=== PATIENT | female | born 1925 | race Caucasian/White ===

== ENCOUNTER 2016-12-21 08:34 | Inpatient (IN) | payer OTHER ==
[2016-12-21] MEDS ORDERED: ACETAMINOPHEN 325 MG TABLET (FP) PO ONE ×2 (08:42→20:38)
--- NOTE | 2016-12-21 09:01 | PDOC ---
History of Present Illness - General Chief Complaint: SIRS, Suspected/Possible Stated Complaint: FEVER, SOB, CONGESTION Time Seen by Provider: 12/21/16 08:55 History Source: Patient Exam Limitations: No Limitations - History of Present Illness Initial Comments: 12/21/16 09:14 Patient is a 89 year old female with PMH of HTN, HLD & Gout who presents to ED with cough & fever since Monday night. She states the cough is mildly productive with white/clear sputum. It was accompanied by a sore throat, fever, mild chills & aches as well. She went to urgent care Monday and was diagnosed with sinus infection/URI and sent home with Cefdinir & Prednisone after testing (-) for strep. Since then the sore throat has mostly resolved, but her cough has not stopped. She also has had increased fevers yesterday and this morning. Daughter had bronchitis last week and is her only sick contact. Denies chest pain, SOB, abdominal pain, nausea, vomiting, diarrhea or constipation. Past History - Travel Traveled outside of the country in the last 30 days: No Close contact w/someone who was outside of country & ill: No - Past Medical History Allergies/Adverse Reactions: Allergies Allergy/AdvReac Type Severity Reaction Status Date / Time No Known Allergies Allergy Verified 12/21/16 08:39 Home Medications: Ambulatory Orders Aspirin 81 mg PO HS 02/27/14 Atorvastatin Ca [Lipitor -] 10 mg PO HS 02/27/14 Metoprolol Succinate [Toprol XL -] 25 mg PO HS 02/27/14 Allopurinol [Zyloprim -] 100 mg PO DAILY 12/21/16 Cardiac Disorders: Yes (tachycardia history) HTN: Yes Hypercholesterolemia: Yes Suicide Attempt (Hx): No Other medical history: Gout - Surgical History Cholecystectomy: Yes Other Surgical History: 12/21/16 09:19 Hysterectomy - Family Disease History Comment:: 12/21/16 09:19 none noted - Psycho/Social/Smoking Cessation Hx Anxiety: No Suicidal Ideation: No Smoking Status: No Smoking History: Never smoked Have you smoked in the past 12 months: No Hx Alcohol Use: No Drug/Substance Use Hx: No Substance Use Type: None Review of Systems - Review of Systems Able to Perform ROS?: Yes Is the patient limited Irish proficient: No Constitutional: Yes: Chills, Fever, Malaise HEENTM: Yes: Blurred Vision, Throat Pain. No: Recent change in vision, Ear Pain , Nose Congestion Respiratory: Yes: Productive cough. No: Hemoptysis Cardiac (ROS): No: Chest Pain, Irregular Heart Rate, Lightheadedness, Palpitations ABD/GI: No: Constipated, Diarrhea, Nausea, Vomiting, Abdominal cramping Neurological: No: Headache, Ataxia, Dizziness All Other Systems: Reviewed and Negative *Physical Exam - Vital Signs Last Vital Signs Temp Pulse Resp BP Pulse Ox 102.4 F H 117 H 20 143/74 93 L 12/21/16 08:36 12/21/16 08:36 12/21/16 08:36 12/21/16 08:36 12/21/16 08:36 - Physical Exam General Appearance: Yes: Nourished, Appropriately Dressed HEENT: positive: EOMI, BOOKER, Other (unable to visualize pharynx due to patient noncompliance) Neck: positive: Trachea midline, Normal Thyroid, Supple Respiratory/Chest: positive: Lungs Clear, Normal Breath Sounds Cardiovascular: positive: Regular Rhythm, S1, S2, Tachycardia Gastrointestinal/Abdominal: positive: Normal Bowel Sounds, Flat, Soft Extremity: positive: Normal Inspection Integumentary: positive: Normal Color, Dry, Warm Neurologic: positive: cook helper pastry II-XII NML intact, Fully Oriented, Alert, Normal Mood/ Affect, Motor Strength 5/5 Heart Score/ECG Review - ECG Impressions Comment:: 12/21/16 10:22 EKG: Sinus Rhythm with short CO (108ms), low voltage QRS, cannot r/o anterior infarct, age undetermined ED Treatment Course - LABORATORY CBC & Chemistry Diagram: 12/21/16 09:53 12/21/16 09:53 - Medications Given in the ED: ED Medications Discontinued Medications Generic Name Dose Route Start Last Admin Trade Name Freq PRN Reason Stop Dose Admin Acetaminophen 650 mg 12/21/16 08:42 12/21/16 08:42 Tylenol - PO 12/21/16 08:43 650 mg NOW ONE Administration Medical Decision Making - Medical Decision Making 12/21/16 09:32 Differential includes Viral URI, pneumonia, influenza, strep. Sepsis protocol initated as patient has >2 SIRS criteria. Ordered CBC, CMP, Lactic acid, CXR, Blood Cx, UA, Urine Cx, PT/INR/PTT & rapid influenza. Will give 1L IVF bolus. 12/21/16 11:11 CXR shows minimal atelectasis at left lung base. Creatinine mildly elevated at 1.5 (baseline is ~1.3). Influenza (-). Will start patient on Ceftriaxone & Azithromycin for presumed Community acquired pneumonia. Will require admission. 12/21/16 11:[address] Cruz who agrees to admit the patient for CAP. *DC/Admit/Observation/Transfer Diagnosis at time of Disposition: Acute onset sepsis, Community acquired pneumonia - Discharge Dispostion Admit: Yes - Referrals Referrals: Doug Nogueira MD [Primary Care Provider] -
[2016-12-21] MEDS ORDERED: SODIUM CHLORIDE 1,000 ML IV STA (09:41)
[2016-12-21 10:07] LABS: MCH 31.3 pg (25.7-33.7); MCHC 33.8 g/dl (32.0-36.0); MEAN CELL VOLUME 92.8 fl (80-96); PLATELET COUNT 133 K/MM3 (134-434); RDW 14.4 % (11.6-15.6); WHITE BLOOD COUNT 7.7 K/mm3 (4.0-10.0)
[2016-12-21 10:08] LABS: BASOPHIL 0.8 % (0-2.0); EOSINOPHIL 0.2 % (0-4.5); NEUTROPHILS 83.1 % (42.8-82.8)
[2016-12-21 10:09] LABS: VENOUS BLOOD GAS HCO3 18.1 meq/L (22-29)
--- NOTE | 2016-12-21 10:10 | PDOC ---
Attending Attestation - Resident Resident Name: LeslieMareka - ED Attending Attestation I have performed the following: I have examined & evaluated the patient, The case was reviewed & discussed with the resident, I agree w/resident's findings & plan, Exceptions are as noted - HPI HPI: 12/21/16 10:10 89-year-old female with history of hypertension and high cholesterol presents with URI and fevers progressing over the last 3 days, worsening cough but no chest pain or difficulty breathing, was seen at urgent care over the weekend and started on antibiotic for sinusitis. - Physicial Exam PE: 12/21/16 10:10 Febrile, tachycardic, O2 sat 92% Course cough Slightly coarse breath sounds in the right mid and right lower lung field, otherwise clear with good air entry and no wheezing or crackles Abdomen is benign - Critical Care Time Total Critical Care Time: 30 Critical Care Statement: The care of this patient involved high complexity decision making to prevent further life threatening deterioration of the patient 's condition and/or to evalute & treat vital organ system(s) failure or risk of failure. - Medical Decision Making 12/21/16 10:11 Patient seen and evaluated with the resident. I agree with the overall evaluation, assessment, and management with the following summary of visit: 89-year-old female presents with sepsis, possible pneumonia, rule out influenza. Sepsis protocol initiated Antipyretics, IV fluid resuscitation, supplemental oxygen Antibiotics as indicated Will require admission Heart Score/ECG Review #1 ECG reviewed & interpreted by me at: 10:16 General ECG Interpretation: Sinus Rhythm, Normal Rate (93), Normal Intervals, No acute ischemic changes (T wave flattening V5-6, no acute ST changes)
[2016-12-21 10:11] LABS: VENOUS PH 7.34 (7.31-7.41)
[2016-12-21 10:49] LABS: ALBUMIN 3.5 g/dl (3.4-5.0); BILIRUBIN,TOTAL 0.6 mg/dL (0.2-1.0); CALCIUM 9.3 mg/dL (8.5-10.1); CREATININE 1.5 mg/dL (0.55-1.02); TOT PROT 6.9 g/dl (6.4-8.2)
[2016-12-21 10:50] LABS: INR 1.12 (0.82-1.09); PROTHROMBIN TIME (PATIENT) 12.4 SEC (9.98-11.88)
[2016-12-21 10:53] LABS: ACTIVATED PTT 31.5 SECONDS (26.9-34.4)
[2016-12-21] MEDS ORDERED: AZITHROMYCIN IVPB 500 MG in DEXTROSE 5%-WATER - 250 ML IVPB ONE (11:00)
[2016-12-21] MEDS ORDERED: CEFTRIAXONE 1 GM in DEXTROSE 5%-WATER - 50 ML IVPB ONE (11:00)
[2016-12-21 11:06] LABS: TROPONIN I < 0.02 ng/ml (0.00-0.05)
[2016-12-21] MEDS ORDERED: AZITHROMYCIN IVPB 250 ML IVPB ONE (11:12)
[2016-12-21] MEDS ORDERED: CEFTRIAXONE 50 ML ONE (11:12)
[2016-12-21 11:34] LABS: URINE APPEARANCE CLEAR; URINE BILIRUBIN NEGATIVE (NEGATIVE); URINE COLOR YELLOW; URINE GLUCOSE (UA) NEGATIVE (NEGATIVE); URINE KETONE NEGATIVE (NEGATIVE); URINE LEUK ESTERASE NEGATIVE (NEGATIVE); URINE NITRITE NEGATIVE (NEGATIVE); URINE UROBILINOGEN NEGATIVE E.U./dl (0.2-1.0)
[2016-12-21 11:35] LABS: URINE BLOOD 1+ (NEGATIVE); URINE PROTEIN 1+ (NEGATIVE)
[2016-12-21 11:36] LABS: URINE MUCUS RARE; URINE RBC 6 /hpf (0-3); URINE WBC 1 /hpf (3-5)
[2016-12-21] MEDS ORDERED: ACETAMINOPHEN 325 MG TABLET (FP) PO PRN (12:16)
[2016-12-21] MEDS ORDERED: DOCUSATE SODIUM 100 MG CAPSULE (FP) PO PRN (12:16)
[2016-12-21] MEDS ORDERED: ONDANSETRON 4 MG/2 ML VIAL IVPB PRN (12:16)
[2016-12-21] MEDS ORDERED: IPRATROPIUM BR 0.02% 0.5 MG/2.5 ML VIAL.NEB. NEB PRN (12:16)
[2016-12-21] MEDS ORDERED: ALBUTEROL SO4 0.083% IH SOL 2.5 MG/3 ML VIAL.NEB. NEB PRN (12:16)
--- NOTE | 2016-12-21 12:23 | HP ---
Admitting History and Physical - Primary Care Physician PCP: Doug Nogueira - Admission Chief Complaint: I have a terrible cough History of Present Illness: Ms Ho is a very pleasant 89 year old female who comes in complaining of cough. She says her daughter recently has been sick with bronchitis. On Monday she noted she began to have a cough. It was slight at first, however it began to worsen. The cough was non-productive. She was short of breath secondary to the cough. She had fevers and chills with it. She presented to an urgent care and was started on an oral antibiotic. She continued to have fevers and worsening cough and came here for further evaluation. She denies lightheadedness , dizziness, passing out, chest pain, nausea, vomiting, abdominal pain, diarrhea , constipation, difficulty or pain on urination, or swelling. She says she has not slept well secondary to coughing. History Source: Patient Limitations to Obtaining History: No Limitations - Past Medical History Cardiovascular: Yes: HTN, Hyperlipdemia Rheumatology: Yes: Gout - Past Surgical History Past Surgical History: Yes: Cholecystectomy, Tonsillectomy - Smoking History Smoking history: Never smoked Have you smoked in the past 12 months: No - Alcohol/Substance Use Hx Alcohol Use: No History of Substance Use: reports: None - Social History ADL: Independent History of Recent Travel: No Home Medications - Allergies Allergies/Adverse Reactions: Allergies Allergy/AdvReac Type Severity Reaction Status Date / Time No Known Allergies Allergy Verified 12/21/16 08:39 - Home Medications Home Medications: Ambulatory Orders Aspirin 81 mg PO HS 02/27/14 Atorvastatin Ca [Lipitor -] 10 mg PO HS 02/27/14 Metoprolol Succinate [Toprol XL -] 25 mg PO HS 02/27/14 Allopurinol [Zyloprim -] 100 mg PO DAILY 12/21/16 Family Disease History - Family Disease History Family Disease History: Other: Father ( of pneumonia) Review of Systems Findings/Remarks: full review of systems obtained, as per HPI and otherwise negative Physical Examination Vital Signs: Vital Signs Temperature 98.2 F 12/21/16 11:06 Pulse Rate 103 H 12/21/16 11:06 Respiratory Rate 18 12/21/16 11:06 Blood Pressure 132/75 12/21/16 11:06 O2 Sat by Pulse Oximetry (%) 97 12/21/16 11:06 Constitutional: Yes: Well Nourished, No Distress, Calm Eyes: Yes: Conjunctiva Clear, EOM Intact HENT: Yes: Atraumatic, Normocephalic Cardiovascular: Yes: Regular Rate and Rhythm. No: Gallop, Murmur, Rub Respiratory: Yes: Cough, On Nasal O2, Rhonchi. No: Rales, Wheezes Gastrointestinal: Yes: Normal Bowel Sounds, Soft. No: Distention, Tenderness Extremities: Yes: WNL Edema: No Labs: CBC, BMP 12/21/16 09:53 12/21/16 09:53 Imaging - Results Chest X-ray: Report Reviewed, Image Reviewed Problem List - Problems (1) Community acquired pneumonia Assessment/Plan: -patient presents with CAP -admit to hospital -reilly and dany, day 1 -culturelle -prn robitussin ac hs Code(s): J18.9 - PNEUMONIA, UNSPECIFIED ORGANISM (2) Gout Assessment/Plan: -continue allopurinol Code(s): M10.9 - GOUT, UNSPECIFIED (3) HTN (hypertension) Assessment/Plan: -continue toprol xl Code(s): I10 - ESSENTIAL (PRIMARY) HYPERTENSION (4) HLD (hyperlipidemia) Assessment/Plan: -continue lipitor Code(s): E78.5 - HYPERLIPIDEMIA, UNSPECIFIED (5) CKD (chronic kidney disease) Assessment/Plan: -at baseline Code(s): N18.9 - CHRONIC KIDNEY DISEASE, UNSPECIFIED
[2016-12-21] MEDS ORDERED: SODIUM CHLORIDE 1,000 ML IV SCH (12:30)
[2016-12-21] MEDS ORDERED: LACTOBACILLUS ACIDOPHILUS 1 EACH TAB (FP) PO SCH (13:30)
--- NOTE | 2016-12-21 15:31 | EKG ---
Test Reason : Blood Pressure : / mmHG Vent. Rate : 093 BPM Atrial Rate : 093 BPM P-R Int : 108 ms QRS Dur : 074 ms QT Int : 328 ms P-R-T Axes : 056 -16 -06 degrees QTc Int : 407 ms SINUS RHYTHM WITH SHORT OH LOW VOLTAGE QRS CANNOT RULE OUT ANTERIOR INFARCT , AGE UNDETERMINED ABNORMAL ECG WHEN COMPARED WITH ECG OF 19-AUG-2010 14:45, [place] INTERVAL HAS DECREASED Confirmed by GRICELDA COLLAZO, JOEY ([id number]) on 12/21/2016 3:30:48 PM Referred By: Confirmed By:JOEY MADISON MD
[2016-12-21] MEDS: LACTOBACILLUS ACIDOPHILUS 1 EACH TAB (FP) PO SCH (18:00)
[2016-12-21] MEDS ORDERED: ACETAMINOPHEN 325 MG TABLET (FP) ONE (20:53)
[2016-12-21] MEDS ORDERED: guaiFENesin 600 MG TABLET.ER (FP) PO SCH (22:00)
[2016-12-21] MEDS: ASPIRIN 81 MG CHEWABLE TABLETS PO SCH (22:10)
[2016-12-21] MEDS: ATORVASTATIN CA 10 MG TABLET (FP) PO SCH (22:10)
[2016-12-21] MEDS: guaiFENesin 600 MG TABLET.ER (FP) PO SCH (22:10)
[2016-12-21] MEDS: METOPROLOL SUCCINATE 25 MG TAB.SR.24H (FP) PO SCH (22:11)
[2016-12-21] MEDS: HEPARIN NA (PORCINE) 5,000 UNITS/ML 1ML VIAL SQ SCH (22:19)
[2016-12-22 00:10] VITALS: BMI 27.1
[2016-12-22 07:16] LABS: BASOPHIL 0.9 % (0-2.0); EOSINOPHIL 5.1 % (0-4.5); MCH 31.6 pg (25.7-33.7); MCHC 33.7 g/dl (32.0-36.0); MEAN CELL VOLUME 93.8 fl (80-96); MEAN PLT VOLUME 8.6 fl (7.5-11.1); NEUTROPHILS 57.1 % (42.8-82.8); PLATELET COUNT 108 K/MM3 (134-434); RDW 14.3 % (11.6-15.6); WHITE BLOOD COUNT 4.9 K/mm3 (4.0-10.0)
[2016-12-22 08:01] LABS: CALCIUM 9.1 mg/dL (8.5-10.1); CREATININE 1.4 mg/dL (0.55-1.02); MAGNESIUM 2.3 mg/dL (1.8-2.4); PHOSPHOROUS 2.8 mg/dL (2.5-4.9)
[2016-12-22] MEDS ORDERED: SODIUM CHLORIDE 1,000 ML IV SCH (08:30)
--- NOTE | 2016-12-22 08:36 | PN ---
Progress Note (short form) - Note Progress Note: 89 year old patient with history of Hypertension, Gout and Hyperlipidemia comes to ER with hx of 4 days of constant cough and some SOB. CXR revealed atelectasis ? early infiltrate and she has had a temp of 101.3 here. Was given PO antibiotics by urgent care but not better. Still coughing Sputum clear no diarrhea some SOB On exam: Vital Signs Period Temp Pulse Resp BP Sys/Navarro Pulse Ox Last 24 Hr 98.2 F-102.4 F 83-117 18-22 106-146/68-78 93-98 Alert slightly hoarse Chest bilateral rhonchi and a few wheezes and rales at both bases Ext: No edema Cor: reg Abnormal Lab Results 12/21/16 12/21/16 12/21/16 09:53 09:53 10:05 Plt Count 133 L D Neutrophils % 83.1 H D Monocytes % Eosinophils % POC VBG pCO2 34.6 L POC VBG pO2 73.3 H Chloride 108 H Carbon Dioxide 20 L BUN 25 H Creatinine 1.5 H Random Glucose 113 H AST 39 H D Creatine Kinase Urine Protein Urine Blood 12/21/16 12/21/16 12/22/16 10:14 10:56 06:00 Plt Count 108 L Neutrophils % Monocytes % 11.3 H Eosinophils % 5.1 H D POC VBG pCO2 POC VBG pO2 Chloride Carbon Dioxide BUN Creatinine Random Glucose AST Creatine Kinase 426 H D Urine Protein 1+ H Urine Blood 1+ H 12/22/16 06:00 Plt Count Neutrophils % Monocytes % Eosinophils % POC VBG pCO2 POC VBG pO2 Chloride 110 H Carbon Dioxide BUN 22 H Creatinine 1.4 H Random Glucose AST Creatine Kinase Urine Protein Urine Blood Imp: Acute bronchitis and probable pneumonia Hypertension Hyperlipidemia Hx. Gout Chronic renal failure Plan: Continue Current Rx Pulmonary MD Followup Lab
[2016-12-22] MEDS: cefTRIAXone 1 GM/50 ML BAG (PRE-DOCKED) IVPB SCH (09:55)
[2016-12-22] MEDS: HEPARIN NA (PORCINE) 5,000 UNITS/ML 1ML VIAL SQ SCH ×2 (09:59→22:39)
[2016-12-22] MEDS: ALLOPURINOL 100 MG TABLET (FP) PO SCH (09:59)
[2016-12-22] MEDS: LACTOBACILLUS ACIDOPHILUS 1 EACH TAB (FP) PO SCH (09:59)
[2016-12-22] MEDS: guaiFENesin 600 MG TABLET.ER (FP) PO SCH ×2 (09:59→22:20)
[2016-12-22] MEDS ORDERED: CEFTRIAXONE 1 GM in DEXTROSE 5%-WATER - 50 ML IVPB SCH (10:00)
[2016-12-22] MEDS: AZITHROMYCIN IVPB 250 MG in DEXTROSE 5%-WATER - 250 ML IVPB SCH (11:50)
--- NOTE | 2016-12-22 12:00 | CONSULT ---
Consult Consult Specialty:: PULMONARY Referred by:: Dr. Nogueira Reason for Consultation:: cough - History of Present Illness Chief Complaint: cough History of Present Illness: 89yo female with h/o HTN, hyperlipidemia, gout who presents with a worsening cough x 5 days. She reports that her cough is mostly nonproductive but clear when she is able to produce sputum. Reports subjective fevers and chills. Her daughter is sick with bronchitis. She went to an urgent care center where she was prescribed ceftin without significant relief. She denies shortness fo breath unless she is coughing. No chest pain or palpitations. She did receive her flu shot this year, has not been on antibiotics or hospitalized within the past 3 months. No nausea, vomiting, abdominal pain or diarrhea. She is a never smoker, used to work for [employer]. - History Source History Provided By: Patient, Medical Record Limitations to Obtaining History: No Limitations - Past Medical History Cardio/Vascular: Yes: HTN, Hyperlipdemia Rheumatology: Yes: Gout - Past Surgical History Past Surgical History: Yes: Cholecystectomy, Tonsillectomy - Alcohol/Substance Use Hx Alcohol Use: No History of Substance Use: reports: None - Smoking History Smoking history: Never smoked Have you smoked in the past 12 months: No - Social History ADL: Independent History of Recent Travel: No Home Medications - Allergies Allergies/Adverse Reactions: Allergies Allergy/AdvReac Type Severity Reaction Status Date / Time No Known Allergies Allergy Verified 12/21/16 08:39 - Home Medications Home Medications: Ambulatory Orders Aspirin 81 mg PO HS 02/27/14 Atorvastatin Ca [Lipitor -] 10 mg PO HS 02/27/14 Metoprolol Succinate [Toprol XL -] 25 mg PO HS 02/27/14 Allopurinol [Zyloprim -] 100 mg PO DAILY 12/21/16 Family Disease History - Family Disease History Family Disease History: Other: Father ( of pneumonia) Review of Systems - Review of Systems Constitutional: reports: Chills, Fever, Malaise Eyes: denies: Recent Change in Vision HENT: denies: Nasal Congestion, Throat Pain Neck: denies: Stiffness, Tenderness Cardiovascular: reports: Shortness of Breath. denies: Chest Pain, Edema, Palpitations Respiratory: reports: Cough. denies: Hemoptysis, SOB on Exertion, Wheezing Gastrointestinal: denies: Abdominal Pain, Nausea, Vomiting Genitourinary: denies: Dysuria, Hematuria Neurological: denies: Dizziness, Headache Endocrine: denies: Unexplained Weight Gain, Unexplained Weight Loss Physical Exam Vital Signs: Vital Signs Temperature 98.6 F 12/22/16 06:25 Pulse Rate 88 12/22/16 06:25 Respiratory Rate 18 12/22/16 06:25 Blood Pressure 146/76 12/22/16 06:25 O2 Sat by Pulse Oximetry (%) 95 12/21/16 22:00 Constitutional: Yes: Calm Eyes: Yes: Conjunctiva Clear, EOM Intact HENT: Yes: Atraumatic, Normocephalic Neck: Yes: Supple, Trachea Midline Cardiovascular: Yes: Regular Rate and Rhythm Respiratory: Yes: Diminished (decreased breath sounds at the bases) Gastrointestinal: Yes: Normal Bowel Sounds, Soft. No: Tenderness Edema: No Neurological: Yes: Alert, Oriented Labs: CBC, BMP 12/22/16 06:00 12/22/16 06:00 Imaging - Results Chest X-ray: Report Reviewed, Image Reviewed (left base atelectasis) Problem List - Problems (1) Community acquired pneumonia Code(s): J18.9 - PNEUMONIA, UNSPECIFIED ORGANISM (2) CKD (chronic kidney disease) Code(s): N18.9 - CHRONIC KIDNEY DISEASE, UNSPECIFIED (3) HLD (hyperlipidemia) Code(s): E78.5 - HYPERLIPIDEMIA, UNSPECIFIED (4) HTN (hypertension) Code(s): I10 - ESSENTIAL (PRIMARY) HYPERTENSION (5) Gout Code(s): M10.9 - GOUT, UNSPECIFIED Assessment/Plan Pneumonia vs Viral Syndrome HTN Hyperlipidemia Gout - agree with current antibiotic coverage with ceftriaxone and azithromycin - f/u cultures - inhaled bronchodilators as needed - O2 as needed - cough suppressants if not producing sputum - DVT prophylaxis Thank you for this consult Nolan Palmer MD
[2016-12-22] MEDS: ATORVASTATIN CA 10 MG TABLET (FP) PO SCH (22:20)
[2016-12-22] MEDS: METOPROLOL SUCCINATE 25 MG TAB.SR.24H (FP) PO SCH (22:20)
[2016-12-22] MEDS: ASPIRIN 81 MG CHEWABLE TABLETS PO SCH (22:20)
[2016-12-23 08:02] LABS: BASOPHIL 1.7 % (0-2.0); EOSINOPHIL 5.3 % (0-4.5); MCH 31.4 pg (25.7-33.7); MCHC 33.5 g/dl (32.0-36.0); MEAN CELL VOLUME 93.7 fl (80-96); MEAN PLT VOLUME 8.9 fl (7.5-11.1); NEUTROPHILS 48.5 % (42.8-82.8); PLATELET COUNT 112 K/MM3 (134-434); RDW 14.2 % (11.6-15.6); WHITE BLOOD COUNT 4.8 K/mm3 (4.0-10.0)
[2016-12-23 09:27] LABS: CALCIUM 8.7 mg/dL (8.5-10.1); CREATININE 1.3 mg/dL (0.55-1.02); URIC ACID 5.9 mg/dL (2.6-7.2)
--- NOTE | 2016-12-23 09:53 | PN ---
Progress Note, Physician Chief Complaint: Still coughing but not as weak. History of Present Illness: Patient admitted with pneumonia from home now on Iv antibiotics and followed by Pulmonary MD. WBC normal but some decrease in platelets ? meds; to follow Renal lab improved on IV fluids. - Current Medication List Current Medications: Active Medications Acetaminophen (Tylenol -) 650 mg PO Q4H PRN PRN Reason: FEVER OR PAIN Albuterol Sulfate (Ventolin 0.083% Nebulizer Soln -) 1 amp NEB Q6H PRN PRN Reason: SHORT OF BREATH/WHEEZING Allopurinol (Zyloprim -) 100 mg PO DAILY [facility] Last Admin: 12/22/16 09:59 Dose: 100 mg Aspirin (Asa -) 81 mg PO HS [facility] Last Admin: 12/22/16 22:20 Dose: 81 mg Atorvastatin Calcium (Lipitor -) 10 mg PO HS [facility] Last Admin: 12/22/16 22:20 Dose: 10 mg Ceftriaxone Sodium (Rocephin 1gm Ivpb (Pre-Docked)) 1 gm IVPB DAILY [facility] Last Admin: 12/22/16 09:55 Dose: 1 gm Docusate Sodium (Colace -) 100 mg PO Q8H PRN PRN Reason: CONSTIPATION Last Admin: 12/22/16 16:22 Dose: 100 mg Guaifenesin (Mucinex -) 600 mg PO BID [facility] Last Admin: 12/22/16 22:20 Dose: 600 mg Guaifenesin/Codeine Phosphate (Robitussin Ac -) 10 ml PO HS PRN PRN Reason: COUGH Heparin Sodium (Porcine) (Heparin -) 5,000 unit SQ BID [facility] Last Admin: 12/22/16 22:39 Dose: Not Given Azithromycin 250 mg/ Dextrose 250 mls @ 250 mls/hr IVPB DAILY [facility] Last Admin: 12/22/16 11:50 Dose: 250 mls/hr Ipratropium Francitas (Atrovent 0.02% Nebulizer -) 1 amp NEB Q6H PRN PRN Reason: WHEEZING Lactobacillus Acidophilus (Bacid -) 1 tab PO DAILY [facility] Last Admin: 12/22/16 09:59 Dose: 1 tab Metoprolol Succinate (Toprol Xl -) 25 mg PO HS [facility] Last Admin: 12/22/16 22:20 Dose: 25 mg Ondansetron HCl (Zofran Injection) 4 mg IVPB Q6H PRN PRN Reason: NAUSEA - Objective Vital Signs: Vital Signs Temperature 97.8 F 12/23/16 06:00 Pulse Rate 78 12/23/16 06:00 Respiratory Rate 16 12/23/16 06:00 Blood Pressure 113/65 12/23/16 06:00 O2 Sat by Pulse Oximetry (%) 97 12/22/16 21:00 Constitutional: Yes: Calm Eyes: Yes: Conjunctiva Clear Cardiovascular: Yes: Regular Rate and Rhythm Respiratory: Yes: Rales, Rhonchi. No: Wheezes (at bases;) Gastrointestinal: Yes: Abdomen, Obese. No: Tenderness Genitourinary: No: Bhat Present Edema: No Neurological: Yes: Alert, Oriented Labs: CBC, BMP 12/23/16 06:00 12/23/16 06:00 INR, PTT INR 1.12 (0.82-1.09) 12/21/16 10:14 Problem List - Problems (1) Community acquired pneumonia Assessment/Plan: Still coughing. On Iv antibiotics. Code(s): J18.9 - PNEUMONIA, UNSPECIFIED ORGANISM (2) CKD (chronic kidney disease) Assessment/Plan: Improved on IV fluids; will switch to 1/2NS as slightly increased Na Code(s): N18.9 - CHRONIC KIDNEY DISEASE, UNSPECIFIED (3) Cough Assessment/Plan: Has Rx renewed Code(s): R05 - COUGH (4) HTN (hypertension) Assessment/Plan: Stable Code(s): I10 - ESSENTIAL (PRIMARY) HYPERTENSION (5) Gout Assessment/Plan: On rx Code(s): M10.9 - GOUT, UNSPECIFIED
[2016-12-23] MEDS ORDERED: POLYETHYLENE GLYCOL 3350 119 GM BTL PO ONE (09:54)
[2016-12-23] MEDS: guaiFENesin 600 MG TABLET.ER (FP) PO SCH ×2 (11:12→23:30)
[2016-12-23] MEDS: ALLOPURINOL 100 MG TABLET (FP) PO SCH (11:12)
[2016-12-23] MEDS: LACTOBACILLUS ACIDOPHILUS 1 EACH TAB (FP) PO SCH (11:12)
[2016-12-23] MEDS: cefTRIAXone 1 GM/50 ML BAG (PRE-DOCKED) IVPB SCH (11:15)
[2016-12-23] MEDS: HEPARIN NA (PORCINE) 5,000 UNITS/ML 1ML VIAL SQ SCH ×2 (11:19→21:40)
[2016-12-23] MEDS: AZITHROMYCIN IVPB 250 MG in DEXTROSE 5%-WATER - 250 ML IVPB SCH (11:23)
--- NOTE | 2016-12-23 16:52 | PN ---
Progress Note (short form) - Note Progress Note: PULMONARY AMBULATING IN HALLWAY WITH FAMILY MEMBER CHART REVIEWED AFEBRILE/VSS ANICTERIC DIMINISHED B/L BREATH SOUNDS S1S2 BS+ NO EDEMA LABS/MEDS/NOTES/IMAGING/MICRO REVIEWED Pneumonia HTN Hyperlipidemia Gout - agree with current antibiotic coverage with ceftriaxone and azithromycin - inhaled bronchodilators as needed - O2 as needed - cough suppressants if not producing sputum - DVT prophylaxis Austin VOSS MD
[2016-12-23] MEDS: ASPIRIN 81 MG CHEWABLE TABLETS PO SCH (21:40)
[2016-12-23] MEDS: ATORVASTATIN CA 10 MG TABLET (FP) PO SCH (21:40)
[2016-12-23] MEDS: METOPROLOL SUCCINATE 25 MG TAB.SR.24H (FP) PO SCH (21:41)
[2016-12-23] MEDS: guaiFENesin/CODEINE 10 ML UNIT-DOSE CUPS PO PRN (21:41)
[2016-12-24 07:39] LABS: BASOPHIL 0.9 % (0-2.0); EOSINOPHIL 4.9 % (0-4.5); MCH 31.3 pg (25.7-33.7); MCHC 33.7 g/dl (32.0-36.0); MEAN CELL VOLUME 93.1 fl (80-96); MEAN PLT VOLUME 8.6 fl (7.5-11.1); NEUTROPHILS 53.6 % (42.8-82.8); PLATELET COUNT 126 K/MM3 (134-434); RDW 14.1 % (11.6-15.6); WHITE BLOOD COUNT 5.1 K/mm3 (4.0-10.0)
[2016-12-24 07:57] LABS: CALCIUM 8.9 mg/dL (8.5-10.1)
[2016-12-24 07:59] LABS: CREATININE 1.3 mg/dL (0.55-1.02)
[2016-12-24] MEDS ORDERED: PT OWN MED DRAWER 7, Y5N ONE (10:01)
--- NOTE | 2016-12-24 10:16 | PN ---
Progress Note (short form) - Note Progress Note: Patient seen an examined Chart reviewed. Cough and congestion persist. Denies new chest discomfort. No fever or rigors. Labs and audit consultant notes reviewed and appreciated. Selected Entries 12/23/16 12/24/16 21:00 05:31 Temperature 98 F Respiratory 20 Rate Blood Pressure 132/74 O2 Sat by Pulse 96 Oximetry (%) Oxygen Delivery Nasal Cannula Method Oxygen Flow 2 Rate Laboratory Tests 12/21/16 12/24/16 12/24/16 10:14 06:00 06:00 WBC 5.1 Hgb 13.3 Hct 39.5 Plt Count 126 L Sodium 144 Potassium 3.9 Chloride 111 H Carbon Dioxide 23 BUN 23 H Creatinine 1.3 H Random Glucose 81 Calcium 8.9 Creatine Kinase 426 H D CK-MB (CK-2) 1.87 Troponin I < 0.02 Chest Diffuse scattered mild rhonchi and fine end-expiratory wheezing Cor RRR Abd Distended soft BS positive No mass or tenderness Ext No edema No phlebitis Neuro No new focal deficit Assessment and Plan Pneumonitis On antibiotic Rx May benefit from the addition of a short course of corticosteroid Mild thrombocytopenia 133K>>108K>>112K>>126K Follow for now CRI Monitor 22/1.4>>23/1.3 HTN Stable HPL Stable Gout H/O
--- NOTE | 2016-12-24 10:56 | PN ---
Progress Note (short form) - Note Progress Note: PULMONARY OOB TO CHAIR PMD NOTES REVIEWED AFEBRILE/VSS ANICTERIC DIMINISHED B/L BREATH SOUNDS S1S2 BS+ NO EDEMA LABS/MEDS/NOTES/IMAGING/MICRO REVIEWED Pneumonia HTN Hyperlipidemia Gout - ceftriaxone and azithromycin - bronchodilators/agree with short course steroids - O2 as needed - cough suppressants if not producing sputum - DVT prophylaxis Austin VOSS MD
[2016-12-24] MEDS: AZITHROMYCIN IVPB 250 MG in DEXTROSE 5%-WATER - 250 ML IVPB SCH (10:58)
[2016-12-24] MEDS: cefTRIAXone 1 GM/50 ML BAG (PRE-DOCKED) IVPB SCH (10:58)
[2016-12-24] MEDS: guaiFENesin 600 MG TABLET.ER (FP) PO SCH ×2 (10:59→21:03)
[2016-12-24] MEDS: HEPARIN NA (PORCINE) 5,000 UNITS/ML 1ML VIAL SQ SCH ×2 (11:02→21:03)
[2016-12-24] MEDS: LACTOBACILLUS ACIDOPHILUS 1 EACH TAB (FP) PO SCH (11:03)
[2016-12-24] MEDS: ALLOPURINOL 100 MG TABLET (FP) PO SCH (11:03)
[2016-12-24] MEDS: guaiFENesin/CODEINE 10 ML UNIT-DOSE CUPS PO PRN (13:30)
[2016-12-24] MEDS: methylPREDNISolone NA SUCC 40 MG/1 ML VIAL IVPB SCH (17:30)
[2016-12-24] MEDS: METOPROLOL SUCCINATE 25 MG TAB.SR.24H (FP) PO SCH (21:03)
[2016-12-24] MEDS: ASPIRIN 81 MG CHEWABLE TABLETS PO SCH (21:03)
[2016-12-24] MEDS: ATORVASTATIN CA 10 MG TABLET (FP) PO SCH (21:04)
[2016-12-25] MEDS: methylPREDNISolone NA SUCC 40 MG/1 ML VIAL IVPB SCH ×3 (02:09→21:44)
[2016-12-25 07:17] LABS: BASOPHIL 0.1 % (0-2.0); MCH 31.3 pg (25.7-33.7); MCHC 33.5 g/dl (32.0-36.0); MEAN CELL VOLUME 93.2 fl (80-96); MEAN PLT VOLUME 9.5 fl (7.5-11.1); NEUTROPHILS 88.2 % (42.8-82.8); PLATELET COUNT 136 K/MM3 (134-434); RDW 13.9 % (11.6-15.6); WHITE BLOOD COUNT 6.9 K/mm3 (4.0-10.0)
[2016-12-25 08:02] LABS: ALBUMIN 2.9 g/dl (3.4-5.0); BILIRUBIN,TOTAL 0.4 mg/dL (0.2-1.0); CALCIUM 9.6 mg/dL (8.5-10.1); CREATININE 1.3 mg/dL (0.55-1.02); TOT PROT 6.7 g/dl (6.4-8.2)
[2016-12-25] MEDS: ALLOPURINOL 100 MG TABLET (FP) PO SCH (09:52)
[2016-12-25] MEDS: HEPARIN NA (PORCINE) 5,000 UNITS/ML 1ML VIAL SQ SCH ×2 (09:52→21:45)
[2016-12-25] MEDS: LACTOBACILLUS ACIDOPHILUS 1 EACH TAB (FP) PO SCH (09:52)
[2016-12-25] MEDS: guaiFENesin 600 MG TABLET.ER (FP) PO SCH ×2 (09:52→21:45)
[2016-12-25] MEDS: AZITHROMYCIN IVPB 250 MG in DEXTROSE 5%-WATER - 250 ML IVPB SCH (11:00)
[2016-12-25] MEDS: cefTRIAXone 1 GM/50 ML BAG (PRE-DOCKED) IVPB SCH (11:05)
--- NOTE | 2016-12-25 11:21 | PN ---
Progress Note (short form) - Note Progress Note: Patient seen an examined Chart reviewed. Cough and congestion improved Denies new chest discomfort. No fever or rigors. Labs and bridal stylist sales consultant notes reviewed and appreciated. Appetite good. Selected Entries 12/24/16 12/25/16 21:00 06:00 Temperature 97.2 F L Pulse Rate 70 Respiratory 20 Rate Blood Pressure 130/77 O2 Sat by Pulse 95 Oximetry (%) Oxygen Delivery Nasal Cannula Method Oxygen Flow 2 Rate Laboratory Tests 12/25/16 12/25/16 06:00 06:00 WBC 6.9 D Hgb 14.2 Hct 42.3 Plt Count 136 Sodium 143 Potassium 4.5 Chloride 110 H Carbon Dioxide 23 BUN 27 H Creatinine 1.3 H Random Glucose 158 H D Calcium 9.6 Total Bilirubin 0.4 D AST 49 H D ALT 47 D Alkaline Phosphatase 90 Total Protein 6.7 Albumin 2.9 L Chest Clear this AM. No residual of diffuse scattered rhonchi and fine end- expiratory wheezing Cor RRR Abd Distended soft BS positive No mass or tenderness Ext No edema No phlebitis Neuro No new focal deficit Assessment and Plan Pneumonitis On antibiotic Rx Appears to have benefitted from the addition of corticosteroid Will taper rapidly Mild thrombocytopenia Improving 133K>>108K>>112K>>126K>>136K Follow for now. Possible effect of infection and/or steroid use CRI Monitor 22/1.4>>23/1.3 HTN Stable HPL Stable Gout H/O Continue current Rx Taper solu-medrol
--- NOTE | 2016-12-25 13:55 | PN ---
Progress Note (short form) - Note Progress Note: PULMONARY AMBULATING IN ROOM OFFERS NO COMPLAINTS AFEBRILE/VSS ANICTERIC CLEAR B/L BREATH SOUNDS S1S2 BS+ NO EDEMA LABS/MEDS/NOTES/IMAGING/MICRO REVIEWED Pneumonia HTN Hyperlipidemia Gout - ceftriaxone and azithromycin - bronchodilators/solumedrol reduced - O2 as needed - DVT prophylaxis Austin VOSS MD
[2016-12-25] MEDS: ASPIRIN 81 MG CHEWABLE TABLETS PO SCH (21:45)
[2016-12-25] MEDS: ATORVASTATIN CA 10 MG TABLET (FP) PO SCH (21:45)
[2016-12-25] MEDS: METOPROLOL SUCCINATE 25 MG TAB.SR.24H (FP) PO SCH (21:45)
[2016-12-26 07:14] LABS: BASOPHIL 0.1 % (0-2.0); MCHC 33.3 g/dl (32.0-36.0); MEAN PLT VOLUME 9.2 fl (7.5-11.1); NEUTROPHILS 87.1 % (42.8-82.8); PLATELET COUNT 157 K/MM3 (134-434)
[2016-12-26 07:51] LABS: ALBUMIN 2.9 g/dl (3.4-5.0); BILIRUBIN,TOTAL 0.4 mg/dL (0.2-1.0); CALCIUM 9.5 mg/dL (8.5-10.1); CREATININE 1.2 mg/dL (0.55-1.02); TOT PROT 6.2 g/dl (6.4-8.2)
[2016-12-26] MEDS ORDERED: guaiFENesin/CODEINE 5 ML UNIT-DOSE CUPS PO PRN (09:21)
--- NOTE | 2016-12-26 09:30 | PN ---
Progress Note, Physician Chief Complaint: coughing and insomnia from last madie. History of Present Illness: Patient felt better yesterday but had come mild increase in wheezing yesterday and coughing still a problem. Not able to sleep due to steroids and roommate having problems. On IV antibiotics and steroids. PT ambulating. - Current Medication List Current Medications: Active Medications Acetaminophen (Tylenol -) 650 mg PO Q4H PRN PRN Reason: FEVER OR PAIN Albuterol Sulfate (Ventolin 0.083% Nebulizer Soln -) 1 amp NEB Q6H PRN PRN Reason: SHORT OF BREATH/WHEEZING Allopurinol (Zyloprim -) 100 mg PO DAILY [facility] Last Admin: 12/25/16 09:52 Dose: 100 mg Aspirin (Asa -) 81 mg PO HS [facility] Last Admin: 12/25/16 21:45 Dose: 81 mg Atorvastatin Calcium (Lipitor -) 10 mg PO HS [facility] Last Admin: 12/25/16 21:45 Dose: 10 mg Ceftriaxone Sodium (Rocephin 1gm Ivpb (Pre-Docked)) 1 gm IVPB DAILY [facility] Last Admin: 12/25/16 11:05 Dose: 1 gm Docusate Sodium (Colace -) 100 mg PO Q8H PRN PRN Reason: CONSTIPATION Last Admin: 12/22/16 16:22 Dose: 100 mg Guaifenesin (Mucinex -) 600 mg PO BID [facility] Last Admin: 12/25/16 21:45 Dose: 600 mg Guaifenesin/Codeine Phosphate (Robitussin Ac -) 5 ml PO TID PRN PRN Reason: COUGH Heparin Sodium (Porcine) (Heparin -) 5,000 unit SQ BID [facility] Last Admin: 12/25/16 21:45 Dose: Not Given Azithromycin 250 mg/ Dextrose 250 mls @ 250 mls/hr IVPB DAILY [facility] Last Admin: 12/25/16 11:00 Dose: 250 mls/hr Ipratropium [place] (Atrovent 0.02% Nebulizer -) 1 amp NEB Q6H PRN PRN Reason: WHEEZING Lactobacillus Acidophilus (Bacid -) 1 tab PO DAILY [facility] Last Admin: 12/25/16 09:52 Dose: 1 tab Lorazepam (Ativan -) 0.5 mg PO HS PRN PRN Reason: ANXIETY Methylprednisolone Sodium Succinate (Solu-Medrol -) 20 mg IVPB Q12H [facility] Last Admin: 12/25/16 21:44 Dose: 20 mg Metoprolol Succinate (Toprol Xl -) 25 mg PO HS [facility] Last Admin: 12/25/16 21:45 Dose: 25 mg Ondansetron HCl (Zofran Injection) 4 mg IVPB Q6H PRN PRN Reason: NAUSEA - Objective Vital Signs: Vital Signs Temperature 97.9 F 12/26/16 05:38 Pulse Rate 77 12/26/16 05:38 Respiratory Rate 20 12/26/16 05:38 Blood Pressure 134/88 12/26/16 05:38 O2 Sat by Pulse Oximetry (%) 96 12/25/16 21:00 Constitutional: Yes: Anxious, Other (flushed due to steroids.) Cardiovascular: Yes: Regular Rate and Rhythm Respiratory: Yes: Diminished, Rhonchi, Wheezes (few wheezes at left base.) Gastrointestinal: Yes: Soft, Hypoactive Bowel Sounds Edema: No Neurological: Yes: Alert, Oriented Labs: CBC, BMP 12/26/16 05:52 12/26/16 05:52 INR, PTT INR 1.12 (0.82-1.09) 12/21/16 10:14 Problem List - Problems (1) Community acquired pneumonia Assessment/Plan: Slowly responding to IV RX. Needed steroids IV over the weekend. Code(s): J18.9 - PNEUMONIA, UNSPECIFIED ORGANISM (2) CKD (chronic kidney disease) Assessment/Plan: Slightly higher due to meds. Code(s): N18.9 - CHRONIC KIDNEY DISEASE, UNSPECIFIED (3) Cough Assessment/Plan: renewed cough RX Code(s): R05 - COUGH (4) HTN (hypertension) Assessment/Plan: Slightly higher due to Rx. Will follow. Code(s): I10 - ESSENTIAL (PRIMARY) HYPERTENSION (5) Gout Assessment/Plan: Uric 5.9. Code(s): M10.9 - GOUT, UNSPECIFIED
[2016-12-26] MEDS ORDERED: PT OWN MED DRAWER 7, Y5N ONE (09:34)
[2016-12-26] MEDS: methylPREDNISolone NA SUCC 40 MG/1 ML VIAL IVPB SCH (09:43)
[2016-12-26] MEDS: HEPARIN NA (PORCINE) 5,000 UNITS/ML 1ML VIAL SQ SCH ×2 (09:43→21:23)
[2016-12-26] MEDS: guaiFENesin 600 MG TABLET.ER (FP) PO SCH ×2 (09:43→21:23)
[2016-12-26] MEDS: LACTOBACILLUS ACIDOPHILUS 1 EACH TAB (FP) PO SCH (09:43)
[2016-12-26] MEDS: ALLOPURINOL 100 MG TABLET (FP) PO SCH (09:45)
[2016-12-26] MEDS: cefTRIAXone 1 GM/50 ML BAG (PRE-DOCKED) IVPB SCH (10:05)
[2016-12-26] MEDS: AZITHROMYCIN IVPB 250 MG in DEXTROSE 5%-WATER - 250 ML IVPB SCH (10:48)
--- NOTE | 2016-12-26 11:10 | PN ---
Progress Note (short form) - Note Progress Note: OOB to chair. Breathing overall feels better. Some residual congested cough. Face appears flushed. No itching or rash. Intake & Output 12/23/16 12/24/16 12/25/16 12/26/16 23:59 23:59 23:59 23:59 Intake Total 750 520 840 Balance 750 520 840 Last Vital Signs Temp Pulse Resp BP Pulse Ox 97.6 F 82 20 146/80 96 12/26/16 09:55 12/26/16 09:55 12/26/16 09:55 12/26/16 09:55 12/25/16 21:00 Active Medications Acetaminophen (Tylenol -) 650 mg PO Q4H PRN PRN Reason: FEVER OR PAIN Albuterol Sulfate (Ventolin 0.083% Nebulizer Soln -) 1 amp NEB Q6H PRN PRN Reason: SHORT OF BREATH/WHEEZING Allopurinol (Zyloprim -) 100 mg PO DAILY [facility] Last Admin: 12/26/16 09:45 Dose: 100 mg Aspirin (Asa -) 81 mg PO HS [facility] Last Admin: 12/25/16 21:45 Dose: 81 mg Atorvastatin Calcium (Lipitor -) 10 mg PO HS [facility] Last Admin: 12/25/16 21:45 Dose: 10 mg Ceftriaxone Sodium (Rocephin 1gm Ivpb (Pre-Docked)) 1 gm IVPB DAILY [facility] Last Admin: 12/26/16 10:05 Dose: 1 gm Docusate Sodium (Colace -) 100 mg PO Q8H PRN PRN Reason: CONSTIPATION Last Admin: 12/22/16 16:22 Dose: 100 mg Guaifenesin (Mucinex -) 600 mg PO BID [facility] Last Admin: 12/26/16 09:43 Dose: 600 mg Guaifenesin/Codeine Phosphate (Robitussin Ac -) 5 ml PO TID PRN PRN Reason: COUGH Heparin Sodium (Porcine) (Heparin -) 5,000 unit SQ BID [facility] Last Admin: 12/26/16 09:43 Dose: 5,000 unit Azithromycin 250 mg/ Dextrose 250 mls @ 250 mls/hr IVPB DAILY [facility] Last Admin: 12/26/16 10:48 Dose: 250 mls/hr Ipratropium [place] (Atrovent 0.02% Nebulizer -) 1 amp NEB Q6H PRN PRN Reason: WHEEZING Lactobacillus Acidophilus (Bacid -) 1 tab PO DAILY [facility] Last Admin: 12/26/16 09:43 Dose: 1 tab Lorazepam (Ativan -) 0.5 mg PO HS PRN PRN Reason: ANXIETY Methylprednisolone Sodium Succinate (Solu-Medrol -) 20 mg IVPB Q12H [facility] Last Admin: 12/26/16 09:43 Dose: 20 mg Metoprolol Succinate (Toprol Xl -) 25 mg PO HS [facility] Last Admin: 12/25/16 21:45 Dose: 25 mg Ondansetron HCl (Zofran Injection) 4 mg IVPB Q6H PRN PRN Reason: NAUSEA Constitutional: Yes: NAD, face is flushed Cardiovascular: Yes: Regular Rate and Rhythm Respiratory: Yes: Few scattered Rhonchi and Wheezes Gastrointestinal: Yes: Soft, (+) Bowel Sounds Edema: No Neurological: Yes: Alert, Oriented Labs: Laboratory Results - last 24 hr 12/26/16 12/26/16 05:52 05:52 WBC 13.0 H D RBC 4.26 Hgb 13.2 Hct 39.7 MCV 93.0 MCHC 33.3 RDW 14.0 Plt Count 157 MPV 9.2 Neutrophils % 87.1 H Lymphocytes % 9.3 Monocytes % 3.5 L D Eosinophils % 0.0 Basophils % 0.1 Sodium 143 Potassium 4.3 Chloride 112 H Carbon Dioxide 21 Anion Gap 10 BUN 34 H D Creatinine 1.2 H Creat Clearance w eGFR 42.30 Random Glucose 138 H Calcium 9.5 Total Bilirubin 0.4 AST 47 H ALT 58 D Alkaline Phosphatase 84 Total Protein 6.2 L Albumin 2.9 L Problem List - Problems (1) Community acquired pneumonia Assessment/Plan: Code(s): J18.9 - PNEUMONIA, UNSPECIFIED ORGANISM (2) CKD (chronic kidney disease) Assessment/Plan: Code(s): N18.9 - CHRONIC KIDNEY DISEASE, UNSPECIFIED (3) Cough Assessment/Plan: Code(s): R05 - COUGH (4) HTN (hypertension) Assessment/Plan: Code(s): I10 - ESSENTIAL (PRIMARY) HYPERTENSION (5) Gout Assessment/Plan: Code(s): M10.9 - GOUT, UNSPECIFIED PLAN: Change to Prednisone equivalent O2 as needed Ambulate as tolerated BD TX Mucinex PFTs once stable as an outpatient Dr Vasquez
[2016-12-26] MEDS: LORazepam 0.5 MG TABLET PO PRN (21:22)
[2016-12-26] MEDS: ATORVASTATIN CA 10 MG TABLET (FP) PO SCH (21:22)
[2016-12-26] MEDS: predniSONE 10 MG TABLET (UD) PO SCH (21:23)
[2016-12-26] MEDS: ASPIRIN 81 MG CHEWABLE TABLETS PO SCH (21:23)
[2016-12-27 07:34] LABS: BASOPHIL 0.2 % (0-2.0); MCH 31.3 pg (25.7-33.7); MCHC 33.9 g/dl (32.0-36.0); MEAN CELL VOLUME 92.5 fl (80-96); NEUTROPHILS 87.1 % (42.8-82.8); PLATELET COUNT 152 K/MM3 (134-434); RDW 14.1 % (11.6-15.6)
[2016-12-27] MEDS: cefTRIAXone 1 GM/50 ML BAG (PRE-DOCKED) IVPB SCH (10:00)
[2016-12-27] MEDS: HEPARIN NA (PORCINE) 5,000 UNITS/ML 1ML VIAL SQ SCH ×2 (10:00→22:26)
[2016-12-27] MEDS: predniSONE 10 MG TABLET (UD) PO SCH ×2 (10:00→22:26)
[2016-12-27] MEDS: guaiFENesin 600 MG TABLET.ER (FP) PO SCH ×2 (10:00→22:26)
[2016-12-27] MEDS: LACTOBACILLUS ACIDOPHILUS 1 EACH TAB (FP) PO SCH (10:00)
[2016-12-27] MEDS: ALLOPURINOL 100 MG TABLET (FP) PO SCH (10:00)
--- NOTE | 2016-12-27 10:24 | PN ---
Progress Note (short form) - Note Progress Note: Resting in NAD in bed on RA. Breathing overall feels better. Still with residual congested cough. Intake & Output 12/24/16 12/25/16 12/26/16 12/27/16 23:59 23:59 23:59 23:59 Intake Total 520 840 670 150 Balance 520 840 670 150 Last Vital Signs Temp Pulse Resp BP Pulse Ox 97.9 F 96 H 18 136/74 97 12/27/16 09:16 12/27/16 09:16 12/27/16 09:16 12/27/16 09:16 12/26/16 21:00 Active Medications Acetaminophen (Tylenol -) 650 mg PO Q4H PRN PRN Reason: FEVER OR PAIN Albuterol Sulfate (Ventolin 0.083% Nebulizer Soln -) 1 amp NEB Q6H PRN PRN Reason: SHORT OF BREATH/WHEEZING Allopurinol (Zyloprim -) 100 mg PO DAILY [facility] Last Admin: 12/26/16 09:45 Dose: 100 mg Aspirin (Asa -) 81 mg PO HS [facility] Last Admin: 12/26/16 21:23 Dose: 81 mg Atorvastatin Calcium (Lipitor -) 10 mg PO HS [facility] Last Admin: 12/26/16 21:22 Dose: 10 mg Ceftriaxone Sodium (Rocephin 1gm Ivpb (Pre-Docked)) 1 gm IVPB DAILY [facility] Last Admin: 12/26/16 10:05 Dose: 1 gm Docusate Sodium (Colace -) 100 mg PO Q8H PRN PRN Reason: CONSTIPATION Last Admin: 12/22/16 16:22 Dose: 100 mg Guaifenesin (Mucinex -) 600 mg PO BID [facility] Last Admin: 12/26/16 21:23 Dose: 600 mg Guaifenesin/Codeine Phosphate (Robitussin Ac -) 5 ml PO TID PRN PRN Reason: COUGH Heparin Sodium (Porcine) (Heparin -) 5,000 unit SQ BID [facility] Last Admin: 12/26/16 21:23 Dose: Not Given Azithromycin 250 mg/ Dextrose 250 mls @ 250 mls/hr IVPB DAILY [facility] Last Admin: 12/26/16 10:48 Dose: 250 mls/hr Ipratropium [place] (Atrovent 0.02% Nebulizer -) 1 amp NEB Q6H PRN PRN Reason: WHEEZING Lactobacillus Acidophilus (Bacid -) 1 tab PO DAILY [facility] Last Admin: 12/26/16 09:43 Dose: 1 tab Lorazepam (Ativan -) 0.5 mg PO HS PRN PRN Reason: ANXIETY Last Admin: 12/26/16 21:22 Dose: 0.5 mg Ondansetron HCl (Zofran Injection) 4 mg IVPB Q6H PRN PRN Reason: NAUSEA Prednisone (Deltasone -) 25 mg PO BID [facility] Last Admin: 12/26/16 21:23 Dose: 25 mg Constitutional: Yes: NAD, flushing of the face much improved Cardiovascular: Yes: Regular Rate and Rhythm Respiratory: Yes: Few scattered Rhonchi, no wheezes heard Gastrointestinal: Yes: Soft, (+) Bowel Sounds Edema: No Neurological: Yes: Alert, Oriented Labs: Laboratory Results - last 24 hr 12/27/16 06:00 WBC 9.0 D RBC 4.21 Hgb 13.2 Hct 39.0 MCV 92.5 MCHC 33.9 RDW 14.1 Plt Count 152 MPV 9.0 Neutrophils % 87.1 H Lymphocytes % 10.4 Monocytes % 2.3 L Eosinophils % 0.0 Basophils % 0.2 Problem List - Problems (1) Community acquired pneumonia Assessment/Plan: Code(s): J18.9 - PNEUMONIA, UNSPECIFIED ORGANISM (2) CKD (chronic kidney disease) Assessment/Plan: Code(s): N18.9 - CHRONIC KIDNEY DISEASE, UNSPECIFIED (3) Cough Assessment/Plan: Code(s): R05 - COUGH (4) HTN (hypertension) Assessment/Plan: Code(s): I10 - ESSENTIAL (PRIMARY) HYPERTENSION (5) Gout Assessment/Plan: Code(s): M10.9 - GOUT, UNSPECIFIED PLAN: Prednisone O2 as needed Ambulate as tolerated BD TX Mucinex PFTs once stable as an outpatient Dr Vasquez
[2016-12-27] MEDS: AZITHROMYCIN IVPB 250 MG in DEXTROSE 5%-WATER - 250 ML IVPB SCH (10:45)
--- NOTE | 2016-12-27 13:27 | PN ---
Progress Note, Physician Chief Complaint: still coughing but improved. History of Present Illness: Patient with Pneumonia is still coughing but feels better and slept well last madie until she had a spell of coughing at 4AM. Tolerating diet. WBC back to normal and Respiratory MD switched IV Steroids to oral Prednisone. - Current Medication List Current Medications: Active Medications Acetaminophen (Tylenol -) 650 mg PO Q4H PRN PRN Reason: FEVER OR PAIN Albuterol Sulfate (Ventolin 0.083% Nebulizer Soln -) 1 amp NEB Q6H PRN PRN Reason: SHORT OF BREATH/WHEEZING Allopurinol (Zyloprim -) 100 mg PO DAILY [facility] Last Admin: 12/27/16 10:00 Dose: 100 mg Aspirin (Asa -) 81 mg PO HS [facility] Last Admin: 12/26/16 21:23 Dose: 81 mg Atorvastatin Calcium (Lipitor -) 10 mg PO HS [facility] Last Admin: 12/26/16 21:22 Dose: 10 mg Ceftriaxone Sodium (Rocephin 1gm Ivpb (Pre-Docked)) 1 gm IVPB DAILY [facility] Last Admin: 12/27/16 10:00 Dose: 1 gm Docusate Sodium (Colace -) 100 mg PO Q8H PRN PRN Reason: CONSTIPATION Last Admin: 12/22/16 16:22 Dose: 100 mg Guaifenesin (Mucinex -) 600 mg PO BID [facility] Last Admin: 12/27/16 10:00 Dose: 600 mg Guaifenesin/Codeine Phosphate (Robitussin Ac -) 5 ml PO TID PRN PRN Reason: COUGH Last Admin: 12/27/16 11:01 Dose: 5 ml Heparin Sodium (Porcine) (Heparin -) 5,000 unit SQ BID [facility] Last Admin: 12/27/16 10:00 Dose: 5,000 unit Azithromycin 250 mg/ Dextrose 250 mls @ 250 mls/hr IVPB DAILY [facility] Last Admin: 12/27/16 10:45 Dose: 250 mls/hr Ipratropium [place] (Atrovent 0.02% Nebulizer -) 1 amp NEB Q6H PRN PRN Reason: WHEEZING Lactobacillus Acidophilus (Bacid -) 1 tab PO DAILY [facility] Last Admin: 12/27/16 10:00 Dose: 1 tab Lorazepam (Ativan -) 0.5 mg PO HS PRN PRN Reason: ANXIETY Last Admin: 12/26/16 21:22 Dose: 0.5 mg Ondansetron HCl (Zofran Injection) 4 mg IVPB Q6H PRN PRN Reason: NAUSEA Prednisone (Deltasone -) 25 mg PO BID [facility] Last Admin: 12/27/16 10:00 Dose: 25 mg - Objective Vital Signs: Vital Signs Temperature 97.9 F 12/27/16 09:16 Pulse Rate 96 H 12/27/16 09:16 Respiratory Rate 18 12/27/16 09:16 Blood Pressure 136/74 12/27/16 09:16 O2 Sat by Pulse Oximetry (%) 97 12/26/16 21:00 Constitutional: Yes: Calm Cardiovascular: Yes: Regular Rate and Rhythm Respiratory: Yes: Rhonchi (at bases) Gastrointestinal: Yes: Soft, Distention, Hypoactive Bowel Sounds. No: Tenderness Genitourinary: No: Bhat Present Edema: No Neurological: Yes: Alert, Oriented Labs: CBC, BMP 12/27/16 06:00 12/26/16 05:52 INR, PTT INR 1.12 (0.82-1.09) 12/21/16 10:14 Problem List - Problems (1) Community acquired pneumonia Assessment/Plan: Still on 2 IV antibiotics; followed by Pulmonary MD Code(s): J18.9 - PNEUMONIA, UNSPECIFIED ORGANISM (2) CKD (chronic kidney disease) Assessment/Plan: Lab still modestly elevated. Will follow. Code(s): N18.9 - CHRONIC KIDNEY DISEASE, UNSPECIFIED (3) Cough Assessment/Plan: Rx for cough renewed. Code(s): R05 - COUGH (4) HTN (hypertension) Assessment/Plan: Stable on Current Rx Code(s): I10 - ESSENTIAL (PRIMARY) HYPERTENSION (5) Gout Assessment/Plan: Uric acid level normal. Code(s): M10.9 - GOUT, UNSPECIFIED
[2016-12-27] MEDS: ASPIRIN 81 MG CHEWABLE TABLETS PO SCH (22:25)
[2016-12-27] MEDS: ATORVASTATIN CA 10 MG TABLET (FP) PO SCH (22:26)
[2016-12-27] MEDS: LORazepam 0.5 MG TABLET PO PRN (22:27)
--- NOTE | 2016-12-28 08:36 | DS ---
Physical Examination Vital Signs: Vital Signs Temperature 98 F 12/28/16 06:00 Pulse Rate 68 12/28/16 06:00 Respiratory Rate 18 12/28/16 06:00 Blood Pressure 121/70 12/28/16 06:00 O2 Sat by Pulse Oximetry (%) 95 12/27/16 21:00 Constitutional: Yes: Calm (still some cough) Neck: Yes: Supple Cardiovascular: Yes: Regular Rate and Rhythm Respiratory: Yes: Rhonchi (few at bases) Gastrointestinal: Yes: Soft, Abdomen, Obese Renal/: No: Bhat Present Edema: No Neurological: Yes: Alert, Oriented Labs: CBC, BMP 12/27/16 06:00 12/26/16 05:52 Discharge Summary Reason For Visit: ACUTE ONSET SEPSIS,PNA Current Active Problems Acute onset sepsis (Acute) CKD (chronic kidney disease) (Acute) Community acquired pneumonia (Acute) Cough (Acute) HLD (hyperlipidemia) (Acute) HTN (hypertension) (Acute) Gout on Rx Procedures: Principal: Severe cough thought to be community acquired pneumonia by Pulmonary MD Other Procedures: IV antibiotics; F/U lab; aerosol Rx Hospital Course: Very slow to improve. Finally improved enough to go home. Condition: Improved - Instructions Diet, Activity, Other Instructions: No added salt. Follow up with Dr. Nogueira within 2 weeks. Referrals: Doug Nogueira MD [Primary Care Provider] - Disposition: HOME - Home Medications Comprehensive Discharge Medication List: Ambulatory Orders Aspirin 81 mg PO HS 02/27/14 Atorvastatin Ca [Lipitor] 10 mg PO HS 02/27/14 Metoprolol Succinate [Toprol XL -] 25 mg PO HS 02/27/14 Allopurinol [Zyloprim -] 100 mg PO DAILY 12/21/16 Docusate Sodium [Colace -] 100 mg PO Q8H PRN #0 capsule 12/27/16 Guaifenesin [Mucinex -] 600 mg PO BID tablet.er 12/27/16 Lorazepam [Ativan] 0.5 mg PO HS PRN #0 tablet MDD 1 12/27/16 Acetaminophen [Tylenol .Regular Strength -] 650 mg PO Q4H PRN #0 tablet Azithromycin [Zithromax 250mg Tablets -] 500 mg PO DAILY #5 tablet 12/28/16 Prednisone [Deltasone -] 20 mg PO BID #60 tablet 12/28/16
[2016-12-28 09:46] VITALS: BP 122/64; PULSE 79; TEMP 97.5
[2016-12-28] MEDS: guaiFENesin 600 MG TABLET.ER (FP) PO SCH (09:57)
[2016-12-28] MEDS: LACTOBACILLUS ACIDOPHILUS 1 EACH TAB (FP) PO SCH (09:57)
[2016-12-28] MEDS: HEPARIN NA (PORCINE) 5,000 UNITS/ML 1ML VIAL SQ SCH (09:57)
[2016-12-28] MEDS: predniSONE 10 MG TABLET (UD) PO SCH (09:57)
[2016-12-28] MEDS: ALLOPURINOL 100 MG TABLET (FP) PO SCH (09:58)
[2016-12-28] MEDS ORDERED: AZITHROMYCIN 250 MG TABLET (FP) PO SCH (10:00)
== END 2016-12-28 12:19 | disposition home or self-care (01) | DRG 871 ==
LOC: JER 08:34 → JERBED 11:47 → J7W 21:07
PROVIDERS: ADMIT Internal Medicine; ATTEND Internal Medicine
DX: A41.9 Sepsis, unspecified organism (principal); J18.9 Pneumonia, unspecified organism; J98.11 Atelectasis; E78.00 Pure hypercholesterolemia, unspecified; I12.9 Hypertensive chronic kidney disease with stage 1 through stage 4 chronic kidney disease, or unspecified chronic kidney disease; N18.9 Chronic kidney disease, unspecified; M10.9 Gout, unspecified; J20.9 Acute bronchitis, unspecified; D69.6 Thrombocytopenia, unspecified
CPT/HCPCS: 36415; 71010-TC; 80048; 80053; 81003; 81015; 82550; 82553; 82803; 83605; 83735; 84100; 84484; 84550; 85025; 85610; 85730; 86850; 86900; 86901; 87040; 87086; 87254; 87804; 87899; 93005; 93010; 94010; 97116-GP; 97162-PG; 99285-25; J1644

== ENCOUNTER 2017-01-08 10:51 | Emergency (ER) | payer OTHER ==
[2017-01-08 11:00] VITALS: TEMP 97.9; BMI 33.2
[2017-01-08] MEDS ORDERED: SODIUM CHLORIDE 1,000 ML IV STA (11:56)
--- NOTE | 2017-01-08 11:56 | PDOC ---
[id number] No Limitations - History of Present Illness Initial Comments: CHIEF COMPLAINT: 89 y/o afebrile female with PMH HTN, HLD, gout c/o lower abdominal pain for the past 2 days. HISTORY OF PRESENT ILLNESS: The patient states she was admitted to the hospital a few weeks ago with pneumonia. After all of the abx she states she had a lot of diarrhea, which has resolved. However, since Monday, she's had lower abd pain and has been passing small balls of stool. She states the pain radiates around to both sides of her back. She states she also feels bloated. She denies f/c, n/v/d, CP, SOB, hematuria, dysuria, urinary frequency. Vital signs on arrival are within normal limits. REVIEW OF SYSTEMS: GENERAL/CONSTITUTIONAL: No fever/chills. No weakness. No weight change. HEAD, EYES, EARS, NOSE AND THROAT: No change in vision. No ear pain or discharge. No sore throat. CARDIOVASCULAR: No chest pain or shortness of breath. RESPIRATORY: No cough, wheezing, or hemoptysis. GASTROINTESTINAL: +abdominal pain and bloating. No vomiting, diarrhea. ? constipation. GENITOURINARY: No dysuria, frequency, or change in urination. MUSCULOSKELETAL: No joint or muscle swelling or pain. No neck. +b/l lower back pain. SKIN: No rash or easy bruising. NEUROLOGIC: No headache, vertigo, loss of consciousness, or loss of sensation. PHYSICAL EXAM: GENERAL: The patient is awake, alert, and fully oriented, in no acute distress. She is well appearing and ambulatory. HEAD: Normal with no signs of trauma. ENT: Pupils equal, round and reactive to light, extraocular movements intact, sclera anicteric, conjunctiva clear. Neck supple. LUNGS: Clear to auscultation bilaterally. Normal excursion. No respiratory distress or use of accessory muscles. CV: RRR, S1/S2, no MRG. Cap refill < 2 sec. ABDOMEN: Soft, lower abdomen appears distended although patient states that is baseline. TTP of suprapubic region, LLQ and RLQ. Decreased BS RLQ. No guarding or rigidity. BACK: No flank pain b/l. No CVA TTP b/l. EXTREMITIES: Normal range of motion, no edema. NEUROLOGICAL: Normal speech, normal gait. CN II-XII grossly intact. PSYCH: Normal mood, normal affect. SKIN: Warm, dry, normal turgor, no rashes or lesions noted. <Mariangel Hennessy - Last Filed: 01/08/17 18:27> <Jorge Lindsay - Last Filed: 01/13/17 09:53> - General Chief Complaint: Pain, Acute Stated Complaint: PAIN/ ABD, BACK Time Seen by Provider: 01/08/17 11:31 Past History - Past Medical History Cardiac Disorders: Yes (tachycardia history) Diabetes: Yes (Pre-DM) HTN: Yes Hypercholesterolemia: Yes Suicide Attempt (Hx): No - Surgical History Cholecystectomy: Yes - Psycho/Social/Smoking Cessation Hx Anxiety: No Suicidal Ideation: No Smoking Status: No Smoking History: Never smoked Have you smoked in the past 12 months: No Hx Alcohol Use: No Drug/Substance Use Hx: No Substance Use Type: None Hx Substance Use Treatment: No <Mariangel Hennessy - Last Filed: 01/08/17 18:27> <Jorge Lindsay - Last Filed: 01/13/17 09:53> - Past Medical History Allergies/Adverse Reactions: Allergies Allergy/AdvReac Type Severity Reaction Status Date / Time No Known Allergies Allergy Verified 01/08/17 10:56 Home Medications: Ambulatory Orders Aspirin 81 mg PO HS 02/27/14 Atorvastatin Ca [Lipitor] 10 mg PO HS 02/27/14 Metoprolol Succinate [Toprol XL -] 25 mg PO HS 02/27/14 Allopurinol [Zyloprim -] 100 mg PO DAILY 12/21/16 Ciprofloxacin [Cipro -] 500 mg PO BID #14 tablet 01/08/17 Metronidazole [Flagyl -] 500 mg PO TID #21 tablet 01/08/17 *Physical Exam - Vital Signs Last Vital Signs Temp Pulse Resp BP Pulse Ox 97.9 F 91 H 19 146/74 96 01/08/17 10:57 01/08/17 10:57 01/08/17 10:57 01/08/17 10:57 01/08/17 10:57 <Mariangel Hennessy - Last Filed: 01/08/17 18:27> - Vital Signs Last Vital Signs Temp Pulse Resp BP Pulse Ox 97.9 F 74 18 134/71 100 01/08/17 10:57 01/08/17 18:18 01/08/17 18:18 01/08/17 18:18 01/08/17 18:18 <Jorge Lindsay - Last Filed: 01/13/17 09:53> ED Treatment Course - LABORATORY CBC & Chemistry Diagram: 01/08/17 12:11 01/08/17 12:11 <Mariangel Hennessy - Last Filed: 01/08/17 18:27> - LABORATORY CBC & Chemistry Diagram: 01/08/17 12:11 01/08/17 12:11 - ADDITIONAL ORDERS Additional order review: 01/08/17 12:11 RBC 4.83 MCV 94.8 MCHC 32.4 RDW 15.1 MPV 8.8 Neutrophils % 77.4 Lymphocytes % 12.7 D Monocytes % 7.8 D Eosinophils % 1.5 D Basophils % 0.6 - Medications Given in the ED: ED Medications Discontinued Medications Generic Name Dose Route Start Last Admin Trade Name Jacksonq PRN Reason Stop Dose Admin Sodium Chloride 1,000 mls @ 1,000 mls/hr 01/08/17 11:56 01/08/17 12:40 Normal Saline - IV 01/08/17 12:55 1,000 mls/hr ASDIR STA Administration Metronidazole 100 mls @ 100 mls/hr 01/08/17 17:24 01/08/17 17:50 Flagyl 500mg Premixed Ivpb - IVPB 01/08/17 18:23 100 mls/hr ONCE ONE Administration Levofloxacin 100 mls @ 100 mls/hr 01/08/17 17:24 01/08/17 18:57 Levaquin 500 Mg Premixed Ivpb - IVPB 01/08/17 18:23 100 mls/hr ONCE ONE Administration Ketorolac Tromethamine 30 mg 01/08/17 18:44 01/08/17 18:57 Toradol Injection - IVPUSH 01/08/17 18:45 30 mg ONCE ONE Administration Morphine Sulfate 2 mg 01/08/17 13:37 01/08/17 13:54 Morphine Injection - IVPUSH 01/08/17 13:38 2 mg ONCE ONE Administration <Jorge Lindsay - Last Filed: 01/13/17 09:53> Medical Decision Making - Medical Decision Making A/P: 89 y/o afebrile female with lower abdominal pain and bloating x 2 days. Plan is as follows: 1. Labs 2. UA/culture 3. CT scan abd/pelvis 4. IV fluids WBC count of [address] scan abd/pelvis IMPRESSION: Minimal pericolonic soft tissue stranding is seen at the lobe of the upper third of the sigmoid colon - ?representing subtle acute diverticulitis. Colonic fecal retention which is probably moderate. Status post cholecystectomy, status post hysterectomy. Minimal to mild chronic L4 vertebral body compression fracture. Spoke with Dr. Cruz, therapeutic recreation specialist for Dr. Nogueira. We discussed the case and since the patient is afebrile, she is not vomiting and tolerating PO, we can give first dose of antibiotics in the ER and discharge to home with PO antibiotics. Will instruct patient for prompt PCP follow up. The patient was instructed to take antibiotics as prescribed. Instructed her to call Dr. Nogueira tomorrow to schedule follow up appointment. Instructed her to return to the ER immediately with any worsening or concerning symptoms, including fever. The patient verbalizes understanding of all instructions, has no further questions and is awaiting discharge. <Mariangel Hennessy - Last Filed: 01/08/17 18:27> - Medical Decision Making 01/13/17 09:53 The patient was seen and evaluated in conjunction with SONYA Hennessy under my direct supervision, ancillary studies were reviewed. I agree with the plan as outlined by SONYA Hennessy . <Jorge Lindsay - Last Filed: 01/13/17 09:53> *DC/Admit/Observation/Transfer <Mariangel Hennessy - Last Filed: 01/08/17 18:27> <Jorge Lindsay - Last Filed: 01/13/17 09:53> Diagnosis at time of Disposition: Diverticulitis Qualifiers: Diverticulitis site: large intestine Diverticulitis bleeding: without bleeding Diverticulitis complication: without perforation or abscess Qualified Code(s): K57.32 - Diverticulitis of large intestine without perforation or abscess without bleeding - Discharge Dispostion Disposition: HOME Condition at time of disposition: Improved - Prescriptions Prescriptions: Ciprofloxacin [Cipro -] 500 mg PO BID #14 tablet Metronidazole [Flagyl -] 500 mg PO TID #21 tablet - Referrals Referrals: Doug Nogueira MD [Primary Care Provider] - Call tomorrow Dez Silveira MD [Staff Physician] - - Patient Instructions Printed Discharge Instructions: DI for Diverticulitis Additional Instructions: Discharge Instructions: -Take antibiotics as prescribed -Follow up with Dr. Nogueira tomorrow -Return to the ER immediately with any worsening or concerning symptoms, including fever or vomiting.
[2017-01-08 12:31] LABS: BASOPHIL 0.6 % (0-2.0); EOSINOPHIL 1.5 % (0-4.5); MCH 30.7 pg (25.7-33.7); MCHC 32.4 g/dl (32.0-36.0); MEAN CELL VOLUME 94.8 fl (80-96); MEAN PLT VOLUME 8.8 fl (7.5-11.1); NEUTROPHILS 77.4 % (42.8-82.8); PLATELET COUNT 155 K/MM3 (134-434); RDW 15.1 % (11.6-15.6); WHITE BLOOD COUNT 15.2 K/mm3 (4.0-10.0)
[2017-01-08 13:01] LABS: ALBUMIN 2.9 g/dl (3.4-5.0); BILIRUBIN,TOTAL 0.5 mg/dL (0.2-1.0); CALCIUM 9.6 mg/dL (8.5-10.1); CREATININE 1.3 mg/dL (0.55-1.02); TOT PROT 6.2 g/dl (6.4-8.2)
[2017-01-08] MEDS ORDERED: morphine CARPU-JECT 2 MG/1 ML DISP.SYRIN IVPUSH ONE (13:37)
[2017-01-08] MEDS ORDERED: morphine CARPU-JECT 2 MG/1 ML DISP.SYRIN ONE (13:50)
[2017-01-08] MEDS ORDERED: LEVOFLOXACIN 500 MG IVPB 100 ML IVPB ONE ×2 (17:24→17:44)
[2017-01-08] MEDS ORDERED: METRONIDAZOLE 500 MG PREMIXED 100 ML IVPB ONE ×2 (17:24→17:44)
[2017-01-08 18:18] VITALS: BP 134/71; PULSE 74
[2017-01-08] MEDS ORDERED: KETOROLAC TROMETHAMINE 30 MG/1 ML VIAL IVPUSH ONE (18:44)
[2017-01-08] MEDS ORDERED: KETOROLAC TROMETHAMINE 30 MG/1 ML VIAL ONE (18:51)
== END 2017-01-08 20:10 | disposition home or self-care (01) ==
LOC: JER 10:51
PROC: 3E0337Z Introduction of Electrolytic and Water Balance Substance into Peripheral Vein, Percutaneous Approach (ICD-10-PCS; principal; 2017-01-08)
PROC: 3E03329 Introduction of Other Anti-infective into Peripheral Vein, Percutaneous Approach (ICD-10-PCS; 2017-01-08)
PROC: 3E03329 Introduction of Other Anti-infective into Peripheral Vein, Percutaneous Approach (ICD-10-PCS; 2017-01-08)
PROC: 3E033NZ Introduction of Analgesics, Hypnotics, Sedatives into Peripheral Vein, Percutaneous Approach (ICD-10-PCS; 2017-01-08)
PROC: 3E0333Z Introduction of Anti-inflammatory into Peripheral Vein, Percutaneous Approach (ICD-10-PCS; 2017-01-08)
DX: K57.32 Diverticulitis of large intestine without perforation or abscess without bleeding (principal); I10 Essential (primary) hypertension; R73.03 Prediabetes; E78.00 Pure hypercholesterolemia, unspecified
CPT/HCPCS: 36415; 74176-TC; 80053; 83605; 85025; 96361; 96365; 96367; 96374; 96375; 99284-25

== ENCOUNTER 2017-01-15 15:02 | Inpatient (IN) | payer OTHER ==
--- NOTE | 2017-01-15 15:14 | PDOC ---
History of Present Illness - General History Source: Patient Exam Limitations: No Limitations - History of Present Illness Initial Comments: 01/15/17 16:11 Patient is a 89 year old female with a significant past medical history of diverticulitis, HTN, HLD & Gout who presents to ED with diarrhea and abdominal pain. She reports constant diarrhea for couple of days. She reports that the abdominal pain is localized to the front abdomen and radiates to the back and hips. Patient reports that she was recently diagnosed with diverticulitis. Patient was seen in this ED 01/08 for similar symptoms and was discharged home on cipro/flagyl but notes that the cipro makes her nauseous. Patient was discharged home 3 weeks ago after being admitted for pneumonia. She notes that she was seen in Dr. Moss office who told her to present to the ED if her symptoms worsen because she will need an admission. She reports decreased PO intake. She denies fever, chills, cough, vomiting, constipation. PCP - Dr. Nogueira <Darlyn Harris - Last Filed: 01/15/17 17:47> <Omari Daugherty - Last Filed: 01/15/17 18:18> - General Chief Complaint: Diarrhea Stated Complaint: DIVERTICULITIS Time Seen by Provider: 01/15/17 15:13 Past History <Darlyn Harris - Last Filed: 01/15/17 17:47> - Past Medical History Cardiac Disorders: Yes (tachycardia history) Diabetes: Yes (Pre-DM) HTN: Yes Hypercholesterolemia: Yes Suicide Attempt (Hx): No - Surgical History Cholecystectomy: Yes - Psycho/Social/Smoking Cessation Hx Anxiety: No Suicidal Ideation: No Smoking Status: No Smoking History: Never smoked Have you smoked in the past 12 months: No Information on smoking cessation initiated: No Hx Alcohol Use: No Drug/Substance Use Hx: No Substance Use Type: None Hx Substance Use Treatment: No <Omari Daugherty - Last Filed: 01/15/17 18:18> - Past Medical History Allergies/Adverse Reactions: Allergies Allergy/AdvReac Type Severity Reaction Status Date / Time No Known Allergies Allergy Verified 01/15/17 15:09 Home Medications: Ambulatory Orders Aspirin 81 mg PO HS 02/27/14 Atorvastatin Ca [Lipitor] 10 mg PO HS 02/27/14 Metoprolol Succinate [Toprol XL -] 25 mg PO HS 02/27/14 Allopurinol [Zyloprim -] 100 mg PO DAILY 12/21/16 Ciprofloxacin [Cipro -] 500 mg PO BID #14 tablet 01/08/17 Metronidazole [Flagyl -] 500 mg PO TID #21 tablet 01/08/17 Review of Systems - Review of Systems Able to Perform ROS?: Yes Comments:: 01/15/17 16:11 GENERAL/CONSTITUTIONAL: No fever or chills. No weakness. HEAD, EYES, EARS, NOSE AND THROAT: No change in vision. No ear pain or discharge. No sore throat. CARDIOVASCULAR: No chest pain or shortness of breath. RESPIRATORY: No cough, wheezing, or hemoptysis. GASTROINTESTINAL: +abdominal pain, nausea, diarrhea. No vomiting or constipation. GENITOURINARY: No dysuria, frequency, or change in urination. MUSCULOSKELETAL: No joint or muscle swelling or pain. No neck or back pain. SKIN: No rash NEUROLOGIC: No headache, vertigo, loss of consciousness, or change in strength/ sensation. ENDOCRINE: No increased thirst. No abnormal weight change. HEMATOLOGIC/LYMPHATIC: No anemia, easy bleeding, or history of blood clots. ALLERGIC/IMMUNOLOGIC: No hives or skin allergy. <Darlyn Harris - Last Filed: 01/15/17 17:47> *Physical Exam - Vital Signs Last Vital Signs Temp Pulse Resp BP Pulse Ox 97.8 F 105 H 18 130/72 97 01/15/17 15:05 01/15/17 15:05 01/15/17 15:05 01/15/17 15:05 01/15/17 15:05 - Physical Exam Comments: 01/15/17 16:12 GENERAL: Awake, alert, and fully oriented, in no acute distress HEAD: No signs of trauma EYES: PERRLA, EOMI, sclera anicteric, conjunctiva clear ENT: Auricles normal inspection, hearing grossly normal, nares patent, oropharynx clear without exudates. Moist mucosa NECK: Normal ROM, supple, no lymphadenopathy, JVD, or masses LUNGS: Breath sounds equal, clear to auscultation bilaterally. No wheezes, and no crackles HEART: Regular rate and rhythm, normal S1 and S2, no murmurs, rubs or gallops ABDOMEN: +diffuse abdominal tenderness. Soft, normoactive bowel sounds. No guarding, no rebound. No masses EXTREMITIES: Normal range of motion, no edema. No clubbing or cyanosis. No cords, erythema, or tenderness NEUROLOGICAL: Cranial nerves II through XII grossly intact. Normal speech. SKIN: Warm, Dry, normal turgor, no rashes or lesions noted. <Darlyn Harris - Last Filed: 01/15/17 17:47> - Vital Signs Last Vital Signs Temp Pulse Resp BP Pulse Ox 97.8 F 105 H 18 130/72 97 01/15/17 15:05 01/15/17 15:05 01/15/17 15:05 01/15/17 15:05 01/15/17 15:05 <Omari Daugherty - Last Filed: 01/15/17 18:18> ED Treatment Course - LABORATORY CBC & Chemistry Diagram: 01/15/17 15:40 01/15/17 15:40 <Darlyn Harris - Last Filed: 01/15/17 17:47> - LABORATORY CBC & Chemistry Diagram: 01/15/17 15:40 01/15/17 15:40 <Omari Daugherty - Last Filed: 01/15/17 18:18> Medical Decision Making - Medical Decision Making 01/15/17 16:12 89 year old female with a significant past medical history of diverticulitis, HTN, HLD & Gout who presents to ED with diarrhea and abdominal pain. Patient's PCP is aware of patient's symptoms since she saw him on 01/12 and patient did not want to be admitted at the time. Awaiting lab results and will contact Dr. Nogueira at his service to admit the patient. In the meantime will provide supportive care. 01/15/17 17:42 A call was placed to Dr. Nogueira at his service. Awaiting call back from Dr. Vargas. 01/15/17 17:[address] Vargas who accepts admission. <Darlyn Harris - Last Filed: 01/15/17 17:47> *DC/Admit/Observation/Transfer - Attestations Scribe Attestion: 01/15/17 16:15 Documentation prepared by THOMAS Krishnan, acting as associate medical director for Omari Daugherty MD/DO. <Darlyn Harris - Last Filed: 01/15/17 17:47> - Discharge Dispostion Admit: Yes - Attestations Physician Attestion: 01/15/17 15:14 I, Dr. Omari Daugherty, attest that this document has been prepared under my direction and personally reviewed by me in its entirety. I further attest, that it accurately reflects all work, treatment, procedures and medical decision -making performed by me. <Omari Daugherty - Last Filed: 01/15/17 18:18> Diagnosis at time of Disposition: Acute diverticulitis of intestine - Discharge Dispostion Condition at time of disposition: Improved - Referrals Referrals: Doug Nogueira MD [Primary Care Provider] -
[2017-01-15] MEDS ORDERED: morphine CARPU-JECT 4 MG/1 ML DISP.SYRIN IVPUSH ONE (15:37)
[2017-01-15] MEDS ORDERED: ONDANSETRON 4 MG/2 ML VIAL IVPUSH ONE (15:37)
[2017-01-15] MEDS ORDERED: morphine CARPU-JECT 4 MG/1 ML DISP.SYRIN ONE (16:10)
[2017-01-15] MEDS ORDERED: ONDANSETRON 4 MG/2 ML VIAL ONE (16:10)
[2017-01-15 16:11] LABS: BASOPHIL 1.3 % (0-2.0); EOSINOPHIL 3.6 % (0-4.5); MCH 30.8 pg (25.7-33.7); MCHC 32.8 g/dl (32.0-36.0); MEAN CELL VOLUME 93.8 fl (80-96); MEAN PLT VOLUME 8.7 fl (7.5-11.1); NEUTROPHILS 67.9 % (42.8-82.8); PLATELET COUNT 118 K/MM3 (134-434); RDW 15.1 % (11.6-15.6); WHITE BLOOD COUNT 7.1 K/mm3 (4.0-10.0)
[2017-01-15 16:22] LABS: INR 1.04 (0.82-1.09); PROTHROMBIN TIME (PATIENT) 11.4 SEC (9.98-11.88)
[2017-01-15 16:54] LABS: ALBUMIN 3.2 g/dl (3.4-5.0); BILIRUBIN,TOTAL 0.4 mg/dL (0.2-1.0); CALCIUM 9.4 mg/dL (8.5-10.1); CREATININE 1.3 mg/dL (0.55-1.02); TOT PROT 6.1 g/dl (6.4-8.2)
[2017-01-15 17:30] LABS: URINE APPEARANCE CLEAR; URINE BILIRUBIN NEGATIVE (NEGATIVE); URINE COLOR YELLOW; URINE GLUCOSE (UA) NEGATIVE (NEGATIVE); URINE KETONE NEGATIVE (NEGATIVE); URINE NITRITE NEGATIVE (NEGATIVE); URINE PROTEIN NEGATIVE (NEGATIVE); URINE UROBILINOGEN NEGATIVE E.U./dl (0.2-1.0)
[2017-01-15 17:32] LABS: URINE BLOOD 1+ (NEGATIVE); URINE LEUK ESTERASE 2+ (NEGATIVE)
[2017-01-15 17:36] LABS: URINE BACTERIA RARE /hpf (NONE SEEN); URINE HYALINE CAST 1 /lpf; URINE MUCUS RARE; URINE RBC 3 /hpf (0-3); URINE WBC 4 /hpf (3-5)
[2017-01-15] MEDS ORDERED: ONDANSETRON 4 MG/2 ML VIAL IVPB PRN (18:25)
[2017-01-15] MEDS ORDERED: METRONIDAZOLE 500 MG PREMIXED 100 ML IVPB ONE (18:48)
[2017-01-15] MEDS ORDERED: LEVOFLOXACIN 500 MG IVPB 100 ML IVPB ONE ×2 (18:48→18:52)
[2017-01-15] MEDS: SODIUM CHLORIDE 1,000 ML IV SCH ×2 (18:59→22:30)
[2017-01-15] MEDS ORDERED: morphine CARPU-JECT 2 MG/1 ML DISP.SYRIN IVPUSH PRN (20:18)
--- NOTE | 2017-01-15 20:21 | HP ---
Admitting History and Physical - Admission Chief Complaint: abd pain, colitis, diarrhea History of Present Illness: 89 yo female, diagnosed with diverticulitis 1 week ago when she was evaluated in the ED. CT showed at that time mild stranding in upper 3rd of sigmoid c/w mild diverticulitis. Started on PO cipro and flagyl, but noted continual abd pain, diarrhea at home. Notes some difficulty taking medication as it was upsetting her stomach., but continued ot take it until last night. With abd pain continuing now presented to ED again. NO N/V, able to tolerate some food at home. History Source: Patient, Family Member, Medical Record Limitations to Obtaining History: No Limitations - Past Medical History Cardiovascular: Yes: HTN, Hyperlipdemia Rheumatology: Yes: Gout - Past Surgical History Past Surgical History: Yes: Cholecystectomy, Tonsillectomy - Smoking History Smoking history: Never smoked Have you smoked in the past 12 months: No - Alcohol/Substance Use Hx Alcohol Use: No History of Substance Use: reports: None - Social History ADL: Independent Occupation: former secretarial work for [employer] History of Recent Travel: No Other Social History: , 3 children Home Medications - Allergies Allergies/Adverse Reactions: Allergies Allergy/AdvReac Type Severity Reaction Status Date / Time No Known Allergies Allergy Verified 01/15/17 15:09 - Home Medications Home Medications: Ambulatory Orders Aspirin 81 mg PO HS 02/27/14 Atorvastatin Ca [Lipitor] 10 mg PO HS 02/27/14 Metoprolol Succinate [Toprol XL -] 25 mg PO HS 02/27/14 Allopurinol [Zyloprim -] 100 mg PO DAILY 12/21/16 Ciprofloxacin [Cipro -] 500 mg PO BID #14 tablet 01/08/17 Metronidazole [Flagyl -] 500 mg PO TID #21 tablet 01/08/17 Family Disease History - Family Disease History Family Disease History: Heart Disease: Mother, Other: Father ( of pneumonia) Review of Systems - Review of Systems Constitutional: reports: Loss of Appetite (mld). denies: Chills, Fever Eyes: reports: No Symptoms HENT: denies: Difficult Swallowing, Epistaxis, Throat Pain Neck: reports: No Symptoms Cardiovascular: denies: Chest Pain, Palpitations Respiratory: denies: Cough, SOB Genitourinary: denies: Burning, Discharge, Dysuria Neurological: denies: Change in LOC Physical Examination Vital Signs: Vital Signs Temperature 97.8 F 01/15/17 15:05 Pulse Rate 87 01/15/17 19:58 Respiratory Rate 20 01/15/17 19:58 Blood Pressure 107/63 01/15/17 19:58 O2 Sat by Pulse Oximetry (%) 97 01/15/17 19:58 Constitutional: Yes: Well Nourished, No Distress, Calm Eyes: Yes: Conjunctiva Clear, EOM Intact, PERRL HENT: Yes: Atraumatic, Normocephalic Neck: Yes: Supple, Trachea Midline Cardiovascular: Yes: Regular Rate and Rhythm, S1, S2. No: Murmur Respiratory: Yes: Regular, CTA Bilaterally. No: Rales, Rhonchi, Wheezes Gastrointestinal: Yes: Normal Bowel Sounds, Distention (softly), Tenderness ( left lower quadrant). No: Tenderness, Rebound Edema: No Neurological: Yes: Alert, Oriented Labs: CBC, BMP 01/15/17 15:40 01/15/17 15:40 Imaging - Results Cat Scan: Report Reviewed (Abd/Pelv (from 01/08)-mild stranding upper 3rd sigmoid colon) Problem List - Problems (1) Acute diverticulitis Assessment/Plan: -change abx to PO -pain control -re-check CT abd pelvis -GI eval -chenge diet to clear liquids for now Code(s): K57.92 - DVTRCLI OF INTEST, PART UNSP, W/O PERF OR ABSCESS W/O BLEED (2) HTN (hypertension) Assessment/Plan: -on antihypertensives Code(s): I10 - ESSENTIAL (PRIMARY) HYPERTENSION (3) Gout Assessment/Plan: -on allopurinol Code(s): M10.9 - GOUT, UNSPECIFIED (4) HLD (hyperlipidemia) Assessment/Plan: -on lipitor Code(s): E78.5 - HYPERLIPIDEMIA, UNSPECIFIED
[2017-01-15 22:14] VITALS: BMI 32.8
[2017-01-15] MEDS: HEPARIN NA (PORCINE) 5,000 UNITS/ML 1ML VIAL SQ SCH (22:27)
[2017-01-15] MEDS: ATORVASTATIN CA 10 MG TABLET (FP) PO SCH (22:29)
[2017-01-15] MEDS: ASPIRIN 81 MG CHEWABLE TABLETS PO SCH (22:29)
[2017-01-15] MEDS: METOPROLOL SUCCINATE 25 MG TAB.SR.24H (FP) PO SCH (22:29)
[2017-01-16] MEDS: METRONIDAZOLE 500 MG PREMIXED 100 ML IVPB SCH ×3 (01:32→17:51)
[2017-01-16] MEDS: oxyCODONE HCL 5 MG TABLET PO PRN ×2 (06:06→19:01)
[2017-01-16 08:19] LABS: BASOPHIL 1.3 % (0-2.0); MCH 31.5 pg (25.7-33.7); MCHC 33.4 g/dl (32.0-36.0); MEAN CELL VOLUME 94.1 fl (80-96); MEAN PLT VOLUME 9.2 fl (7.5-11.1); NEUTROPHILS 63.2 % (42.8-82.8); PLATELET COUNT 95 K/MM3 (134-434)
[2017-01-16 08:55] LABS: ALBUMIN 2.5 g/dl (3.4-5.0); BILIRUBIN,TOTAL 0.4 mg/dL (0.2-1.0); CALCIUM 8.3 mg/dL (8.5-10.1); CREATININE 1.2 mg/dL (0.55-1.02); TOT PROT 4.9 g/dl (6.4-8.2)
[2017-01-16] MEDS ORDERED: LEVOFLOXACIN 500 MG IVPB 100 ML IVPB SCH (10:00)
[2017-01-16] MEDS: LEVOFLOXACIN 250 MG IVPB 50 ML IVPB SCH (10:28)
[2017-01-16] MEDS: ALLOPURINOL 100 MG TABLET (FP) PO SCH (10:29)
[2017-01-16] MEDS: HEPARIN NA (PORCINE) 5,000 UNITS/ML 1ML VIAL SQ SCH ×2 (10:29→22:12)
[2017-01-16] MEDS: SODIUM CHLORIDE 1,000 ML IV SCH (10:37)
[2017-01-16 11:08] LABS: C-REACTIVE PROTEIN 0.8 MG/DL (0.00-0.3)
--- NOTE | 2017-01-16 11:45 | PN ---
Progress Note, Physician Chief Complaint: Diarrhea and some abdominal cramps. History of Present Illness: Patient with recent Acute diverticulitis was seen in ER and then followed up in office but has developed diarrhea and abdominal cramps and returned to ER. Her previous ER admission WBC was 15,500 but last week fell to 7,700. In fact initially she had difficulty with moving her bowels. No chills or fever. - Current Medication List Current Medications: Active Medications Allopurinol (Zyloprim -) 100 mg PO DAILY [facility] Last Admin: 01/16/17 10:29 Dose: 100 mg Aspirin (Asa -) 81 mg PO [facility] Last Admin: 01/15/17 22:29 Dose: 81 mg Atorvastatin Calcium (Lipitor -) 10 mg PO [facility] Last Admin: 01/15/17 22:29 Dose: 10 mg Heparin Sodium (Porcine) (Heparin -) 5,000 unit SQ BID [facility] Last Admin: 01/16/17 10:29 Dose: 5,000 unit Metronidazole (Flagyl 500mg Premixed Ivpb -) 100 mls @ 100 mls/hr IVPB Q8H-IV [facility] Last Admin: 01/16/17 10:28 Dose: 100 mls/hr Sodium Chloride (Normal Saline -) 1,000 mls @ 125 mls/hr IV ASDIR [facility] Last Admin: 01/15/17 22:30 Dose: 125 mls/hr Levofloxacin (Levaquin 250 Mg Premixed Ivpb -) 50 mls @ 50 mls/hr IVPB DAILY [facility] Last Admin: 01/16/17 10:28 Dose: 50 mls/hr Metoprolol Succinate (Toprol Xl -) 25 mg PO [facility] Last Admin: 01/15/17 22:29 Dose: 25 mg Morphine Sulfate (Morphine Injection -) 2 mg IVPUSH Q4H PRN PRN Reason: PAIN LEVEL 6-10 Ondansetron HCl (Zofran Injection) 4 mg IVPB Q6H PRN PRN Reason: NAUSEA Oxycodone HCl (Roxicodone -) 5 mg PO Q6H PRN PRN Reason: PAIN Last Admin: 01/16/17 06:06 Dose: 5 mg - Objective Vital Signs: Vital Signs Temperature 80 F L 01/16/17 09:00 Pulse Rate 80 01/16/17 09:00 Respiratory Rate 18 01/16/17 09:00 Blood Pressure 101/52 01/16/17 09:00 O2 Sat by Pulse Oximetry (%) 98 01/15/17 22:00 Constitutional: Yes: Calm Neck: Yes: Supple Cardiovascular: Yes: Regular Rate and Rhythm Respiratory: Yes: Regular. No: Rales, SOB Gastrointestinal: Yes: Soft, Distention, Hyperactive Bowel Sounds, Tenderness ( Mild tenderness throughout.) Genitourinary: No: Bhat Present Edema: No Neurological: Yes: Alert Labs: CBC, BMP 01/16/17 06:35 01/16/17 06:35 INR, PTT INR 1.04 (0.82-1.09) 01/15/17 15:40 Problem List - Problems (1) Diarrhea Assessment/Plan: R/O C. Diff.; Stool C/S in lab. Patient started on Flagyl. Code(s): R19.7 - DIARRHEA, UNSPECIFIED (2) Acute diverticulitis Assessment/Plan: Patient completed course of antibiotics. Code(s): K57.92 - DVTRCLI OF INTEST, PART UNSP, W/O PERF OR ABSCESS W/O BLEED (3) CKD (chronic kidney disease) Assessment/Plan: Lab stable; will follow. Code(s): N18.9 - CHRONIC KIDNEY DISEASE, UNSPECIFIED (4) HTN (hypertension) Assessment/Plan: BP 101/52. On Rx. Code(s): I10 - ESSENTIAL (PRIMARY) HYPERTENSION
[2017-01-16] MEDS ORDERED: ACETAMINOPHEN 325 MG TABLET (FP) PO PRN (15:46)
--- NOTE | 2017-01-16 15:54 | CON.GI ---
Consult Consult Specialty:: GI Referred by:: Dr. Doug Nogueira Reason for Consultation:: Diarrhea and diverticulitis - History of Present Illness Chief Complaint: "I was having loose stool and lower abdominal pain" History of Present Illness: 89F admitted for evaluation of progressive lower abdominal pain and loose BM's. Ms. Ho explains that she was admitted to the hospital or 2 weeks at the end of November and was treated with antibiotics. She describes having loose BM' s from that time and then developed lower abdominal pain over the last week. there was no rectal bleeding. There was no angeli diarrhea. She was seen in the ER 01/[address] scan performed without any contrast (unclear why no PO contrast was used to better evaluate the bowel) revealing diverticulosis and stranding along the proximal sigmoid colon raising the question of possible acute diverticulitis. her WBC was 15 at the time. She was given PO abx. Pain persisted. She came to ER again 11/14 . She had a normal WBC and a repeat non contrast CT scan revealed similar findings. Stool c. diff is pending. She believes that she had a colonoscopy 8 years [address] performed [address] Travis and was told of divertiulosis. There is no family history of colorectal cancer. - History Source History Provided By: Patient Limitations to Obtaining History: No Limitations - Past Medical History Cardio/Vascular: Yes: HTN, Hyperlipdemia Gastrointestinal: Yes: Diverticulosis ( ) ...: No Rheumatology: Yes: Gout - Past Surgical History Past Surgical History: Yes: Cholecystectomy (laparoscopic), Hysterectomy (ADRIANNA/ BSO), Tonsillectomy - Alcohol/Substance Use Hx Alcohol Use: No History of Substance Use: reports: None - Smoking History Smoking history: Never smoked Have you smoked in the past 12 months: No Aproximately how many cigarettes per day: 0 - Social History Usual Living Arrangement: Other () ADL: Independent 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 : [facility] History of Recent Travel: No Home Medications - Allergies Allergies/Adverse Reactions: Allergies Allergy/AdvReac Type Severity Reaction Status Date / Time No Known Allergies Allergy Verified 01/15/17 15:09 - Home Medications Home Medications: Ambulatory Orders Aspirin 81 mg PO HS 02/27/14 Atorvastatin Ca [Lipitor] 10 mg PO HS 02/27/14 Metoprolol Succinate [Toprol XL -] 25 mg PO HS 02/27/14 Allopurinol [Zyloprim -] 100 mg PO DAILY 12/21/16 Ciprofloxacin [Cipro -] 500 mg PO BID #14 tablet 01/08/17 Metronidazole [Flagyl -] 500 mg PO TID #21 tablet 01/08/17 Family Disease History - Family Disease History Family Disease History: Heart Disease: Mother ( 72 of CVA), Other: Father ( 85 of pneumonia) Other Family History: 12 siblings: 4 alive. 1 sister from pancreatic cancer, 1 sister from CVA, 1 sister from alzheimer's complications 1 brother from DM II complications, 1 brother from a blood disorder Review of Systems - Review of Systems Constitutional: denies: Chills, Unintentional Wgt. Loss Cardiovascular: denies: Chest Pain Respiratory: denies: SOB Gastrointestinal: reports: Abdominal Pain. denies: Melena, Rectal Bleeding Physical Exam-GI Vital Signs: Vital Signs Temperature 98.3 F 01/16/17 13:44 Pulse Rate 84 01/16/17 13:44 Respiratory Rate 20 01/16/17 13:44 Blood Pressure 116/70 01/16/17 13:44 O2 Sat by Pulse Oximetry (%) 98 01/15/17 22:00 Constitutional: Yes: Calm Eyes: No: Sclera Icterus Cardiovascular: Yes: Regular Rate and Rhythm. No: Murmur Respiratory: Yes: CTA Bilaterally Gastrointestinal Inspection: Yes: Scars (healed trochar scars, + pelvic surgical scar) ...Auscultate: Yes: Hyperactive Bowel Sounds ...Palpate: Yes: Tenderness (TTP LLQ). No: Hepatomegaly, Splenomegaly ...Percussion: No: Tympanitic ...Rectal Exam: Yes: Other (external skin tags, formed soft brown stool in rectal vault guaiac negative) Edema: Yes Edema: LLE: 1+, RLE: 1+ Neurological: Yes: Alert, Oriented Labs: CBC, BMP 01/16/17 06:35 01/16/17 06:35 INR, PTT INR 1.04 (0.82-1.09) 01/15/17 15:40 Hepatic Panel Total Bilirubin 0.4 mg/dL (0.2-1.0) 01/16/17 06:35 AST 23 U/L (15-37) 01/16/17 06:35 ALT 28 U/L (12-78) D 01/16/17 06:35 Alkaline Phosphatase 117 U/L (45-117) D 01/16/17 06:35 Albumin 2.5 g/dl (3.4-5.0) L D 01/16/17 06:35 Imaging - Results Cat Scan: Report Reviewed, Image Reviewed Problem List - Problems (1) Acute diverticulitis Assessment/Plan: Question of diverticulitis given CT scan findings and location of pain. Colitis would need ot be considered as well however the remainder of the colon appears to be normal in appearance. The stool on my rectal exam was formed and there is also fecal retention noted on CT scan For now advised the following: Clear liquids for now IV Abx Stool for C. Diff pending Probiotic Code(s): K57.92 - DVTRCLI OF INTEST, PART UNSP, W/O PERF OR ABSCESS W/O BLEED
[2017-01-16] MEDS: METOPROLOL SUCCINATE 25 MG TAB.SR.24H (FP) PO SCH (22:12)
[2017-01-16] MEDS: ATORVASTATIN CA 10 MG TABLET (FP) PO SCH (22:12)
[2017-01-16] MEDS: ASPIRIN 81 MG CHEWABLE TABLETS PO SCH (22:12)
[2017-01-17] MEDS: METRONIDAZOLE 500 MG PREMIXED 100 ML IVPB SCH ×3 (02:02→17:44)
[2017-01-17] MEDS: SODIUM CHLORIDE 1,000 ML IV SCH (06:43)
[2017-01-17 07:36] LABS: BASOPHIL 1.4 % (0-2.0); EOSINOPHIL 6.1 % (0-4.5); MCH 31.4 pg (25.7-33.7); MCHC 33.5 g/dl (32.0-36.0); MEAN CELL VOLUME 93.5 fl (80-96); MEAN PLT VOLUME 8.9 fl (7.5-11.1); NEUTROPHILS 57.9 % (42.8-82.8); PLATELET COUNT 98 K/MM3 (134-434); RDW 14.9 % (11.6-15.6); WHITE BLOOD COUNT 4.8 K/mm3 (4.0-10.0)
[2017-01-17 07:49] LABS: CALCIUM 8.7 mg/dL (8.5-10.1); MAGNESIUM 1.8 mg/dL (1.8-2.4)
[2017-01-17 07:50] LABS: CREATININE 1.3 mg/dL (0.55-1.02)
[2017-01-17] MEDS: LACTOBACILLUS ACIDOPHILUS 1 EACH TAB (FP) PO SCH (09:44)
[2017-01-17] MEDS: ALLOPURINOL 100 MG TABLET (FP) PO SCH (09:44)
[2017-01-17] MEDS: HEPARIN NA (PORCINE) 5,000 UNITS/ML 1ML VIAL SQ SCH ×2 (09:44→21:40)
--- NOTE | 2017-01-17 10:17 | PN ---
Progress Note, Physician Chief Complaint: My legs are swollen and some pasty BM's History of Present Illness: Patient with admission for Acute diverticulitis has been on outpatient antibiotics and now IV Rx yet still has abdominal bloating and frequent pasty stools. C. Diff pending. Seen by GI MD. WBC count now normal. She has developed pedal edema due to IV Fluids so I will D/C IV Saline. On Clear liquids; 2GM Sodium. - Current Medication List Current Medications: Active Medications Acetaminophen (Tylenol -) 650 mg PO Q6H PRN PRN Reason: FEVER OR PAIN Allopurinol (Zyloprim -) 100 mg PO DAILY [facility] Last Admin: 01/17/17 09:44 Dose: 100 mg Aspirin (Asa -) 81 mg PO HS [facility] Last Admin: 01/16/17 22:12 Dose: 81 mg Atorvastatin Calcium (Lipitor -) 10 mg PO HS [facility] Last Admin: 01/16/17 22:12 Dose: 10 mg Furosemide (Lasix Injection -) 40 mg IVPUSH ONCE ONE Stop: 01/17/17 10:08 Heparin Sodium (Porcine) (Heparin -) 5,000 unit SQ BID [facility] Last Admin: 01/17/17 09:44 Dose: 5,000 unit Metronidazole (Flagyl 500mg Premixed Ivpb -) 100 mls @ 100 mls/hr IVPB Q8H-IV [facility] Last Admin: 01/17/17 09:43 Dose: 100 mls/hr Levofloxacin (Levaquin 250 Mg Premixed Ivpb -) 50 mls @ 50 mls/hr IVPB DAILY [facility] Last Admin: 01/16/17 10:28 Dose: 50 mls/hr Lactobacillus Acidophilus (Bacid -) 1 tab PO DAILY [facility] Last Admin: 01/17/17 09:44 Dose: 1 tab Metoprolol Succinate (Toprol Xl -) 25 mg PO HS [facility] Last Admin: 01/16/17 22:12 Dose: 25 mg Morphine Sulfate (Morphine Injection -) 2 mg IVPUSH Q4H PRN PRN Reason: PAIN LEVEL 6-10 Ondansetron HCl (Zofran Injection) 4 mg IVPB Q6H PRN PRN Reason: NAUSEA Oxycodone HCl (Roxicodone -) 5 mg PO Q6H PRN PRN Reason: PAIN Last Admin: 01/16/17 19:01 Dose: 5 mg - Objective Vital Signs: Vital Signs Temperature 98.5 F 01/17/17 05:59 Pulse Rate 76 01/17/17 05:59 Respiratory Rate 20 01/17/17 05:59 Blood Pressure 116/67 01/17/17 05:59 O2 Sat by Pulse Oximetry (%) 98 01/15/17 22:00 Constitutional: Yes: Mild Distress Eyes: Yes: Conjunctiva Clear Cardiovascular: Yes: Regular Rate and Rhythm Respiratory: Yes: Diminished. No: Rales Gastrointestinal: Yes: Soft, Distention, Hyperactive Bowel Sounds, Tenderness ( mild LLQ tenderness) Genitourinary: Yes: Incontinence. No: Bhat Present Edema: LLE: 1+, RLE: 1+ Neurological: Yes: Alert Labs: CBC, BMP 01/17/17 06:00 01/17/17 06:00 INR, PTT INR 1.04 (0.82-1.09) 01/15/17 15:40 Problem List - Problems (1) Diarrhea Assessment/Plan: Await C. Diff results Code(s): R19.7 - DIARRHEA, UNSPECIFIED (2) Acute diverticulitis Assessment/Plan: On IV antibiotics; seen by GI MD Code(s): K57.92 - DVTRCLI OF INTEST, PART UNSP, W/O PERF OR ABSCESS W/O BLEED (3) CKD (chronic kidney disease) Assessment/Plan: Much improved Code(s): N18.9 - CHRONIC KIDNEY DISEASE, UNSPECIFIED (4) HTN (hypertension) Assessment/Plan: BP 116/67 Code(s): I10 - ESSENTIAL (PRIMARY) HYPERTENSION (5) Edema extremities Assessment/Plan: Due to IV saline: LasixX1 ordered. Code(s): R60.0 - LOCALIZED EDEMA
[2017-01-17] MEDS: LEVOFLOXACIN 250 MG IVPB 50 ML IVPB SCH (10:30)
[2017-01-17] MEDS ORDERED: FUROSEMIDE 40 MG/4 ML INJECTABLE VIAL IVPUSH ONE (10:50)
--- NOTE | 2017-01-17 14:55 | PN ---
GI Progress Note Subjective: No acute events Loose but formed BM's Left sided abdominal pain improevd - Objective Vital Signs: Vital Signs Temperature 97.9 F 01/17/17 09:00 Pulse Rate 80 01/17/17 09:00 Respiratory Rate 18 01/17/17 09:00 Blood Pressure 113/40 01/17/17 09:00 O2 Sat by Pulse Oximetry (%) 98 01/17/17 09:00 Constitutional: Well Nourished Eyes: No: Sclera Icterus Cardiovascular: Yes: Regular Rate and Rhythm Respiratory: Yes: CTA Bilaterally Gastrointestinal Inspection: No: Distention ...Auscultate: Yes: Normoactive Bowel Sounds ...Palpate: No: Tenderness Edema: Yes (trace LE) Neurological: Yes: Alert, Oriented Labs: CBC, BMP 01/17/17 06:00 01/17/17 06:00 INR, PTT INR 1.04 (0.82-1.09) 01/15/17 15:40 Microbiology 01/16/17 05:45 Stool Clostridium difficile Antigen (RENETTA) - Neg 01/16/17 05:45 Stool Clostridium difficile Toxin Assay - Neg Problem List - Problems (1) Acute diverticulitis Assessment/Plan: Cliically improved in terms of left sided diarrhea Continue Abx, will need PO regimen that she can tolerate. Bacid Code(s): K57.92 - DVTRCLI OF INTEST, PART UNSP, W/O PERF OR ABSCESS W/O BLEED
[2017-01-17] MEDS: ASPIRIN 81 MG CHEWABLE TABLETS PO SCH (21:39)
[2017-01-17] MEDS: METOPROLOL SUCCINATE 25 MG TAB.SR.24H (FP) PO SCH (21:40)
[2017-01-17] MEDS: ATORVASTATIN CA 10 MG TABLET (FP) PO SCH (21:40)
[2017-01-18] MEDS: METRONIDAZOLE 500 MG PREMIXED 100 ML IVPB SCH ×3 (01:43→17:57)
[2017-01-18 08:31] LABS: C-REACTIVE PROTEIN 0.8 MG/DL (0.00-0.3); CALCIUM 8.8 mg/dL (8.5-10.1); CREATININE 1.3 mg/dL (0.55-1.02)
--- NOTE | 2017-01-18 08:41 | PN ---
Progress Note, Physician Chief Complaint: nausea and still pasty stools; also a cough. History of Present Illness: Patient with Diverticulitis is still not feeling well with nausea; pasty loose stools and cough. On IV Antibiotics. Given Lasix X1 yesterday and IV fluid RX stopped. WBC normal and C. Diff neg. She wants more solid food and I will increase diet to full liquid. - Current Medication List Current Medications: Active Medications Acetaminophen (Tylenol -) 650 mg PO Q6H PRN PRN Reason: FEVER OR PAIN Last Admin: 01/18/17 00:44 Dose: 650 mg Allopurinol (Zyloprim -) 100 mg PO DAILY [facility] Last Admin: 01/17/17 09:44 Dose: 100 mg Aspirin (Asa -) 81 mg PO HS [facility] Last Admin: 01/17/17 21:39 Dose: 81 mg Atorvastatin Calcium (Lipitor -) 10 mg PO HS [facility] Last Admin: 01/17/17 21:40 Dose: 10 mg Heparin Sodium (Porcine) (Heparin -) 5,000 unit SQ BID [facility] Last Admin: 01/17/17 21:40 Dose: 5,000 unit Metronidazole (Flagyl 500mg Premixed Ivpb -) 100 mls @ 100 mls/hr IVPB Q8H-IV [facility] Last Admin: 01/18/17 01:43 Dose: 100 mls/hr Levofloxacin (Levaquin 250 Mg Premixed Ivpb -) 50 mls @ 50 mls/hr IVPB DAILY [facility] Last Admin: 01/17/17 10:30 Dose: 50 mls/hr Lactobacillus Acidophilus (Bacid -) 1 tab PO DAILY [facility] Last Admin: 01/17/17 09:44 Dose: 1 tab Metoprolol Succinate (Toprol Xl -) 25 mg PO [facility] Last Admin: 01/17/17 21:40 Dose: 25 mg Morphine Sulfate (Morphine Injection -) 2 mg IVPUSH Q4H PRN PRN Reason: PAIN LEVEL 6-10 Ondansetron HCl (Zofran Injection) 4 mg IVPB Q6H PRN PRN Reason: NAUSEA Oxycodone HCl (Roxicodone -) 5 mg PO Q6H PRN PRN Reason: PAIN Last Admin: 01/16/17 19:01 Dose: 5 mg - Objective Vital Signs: Vital Signs Temperature 98.2 F 01/18/17 06:00 Pulse Rate 82 02/22/17 06:00 Respiratory Rate 18 01/18/17 06:00 Blood Pressure 126/73 01/18/17 06:00 O2 Sat by Pulse Oximetry (%) 98 01/17/17 21:00 Constitutional: Yes: Mild Distress Cardiovascular: Yes: Regular Rate and Rhythm Respiratory: Yes: Rhonchi (at bases.) Gastrointestinal: Yes: Soft, Distention, Hyperactive Bowel Sounds, Tenderness ( slight at LLQ) Genitourinary: No: Bhat Present Musculoskeletal: Yes: Joint Stiffness Edema: LLE: Trace, RLE: Trace Labs: CBC, BMP 01/17/17 06:00 01/18/17 06:00 INR, PTT INR 1.04 (0.82-1.09) 01/15/17 15:40 Problem List - Problems (1) Diarrhea Assessment/Plan: C. Diff negative Code(s): R19.7 - DIARRHEA, UNSPECIFIED (2) Acute diverticulitis Assessment/Plan: On Rx; seen by GI MD Code(s): K57.92 - DVTRCLI OF INTEST, PART UNSP, W/O PERF OR ABSCESS W/O BLEED (3) CKD (chronic kidney disease) Assessment/Plan: lab from today pending. Code(s): N18.9 - CHRONIC KIDNEY DISEASE, UNSPECIFIED (4) HTN (hypertension) Assessment/Plan: Stable on Rx. Code(s): I10 - ESSENTIAL (PRIMARY) HYPERTENSION (5) Edema extremities Assessment/Plan: Better with Lasix X1 but chest Xray and EKG ordered. Code(s): R60.0 - LOCALIZED EDEMA
[2017-01-18] MEDS: LACTOBACILLUS ACIDOPHILUS 1 EACH TAB (FP) PO SCH (10:00)
[2017-01-18] MEDS: ALLOPURINOL 100 MG TABLET (FP) PO SCH (10:00)
[2017-01-18] MEDS: HEPARIN NA (PORCINE) 5,000 UNITS/ML 1ML VIAL SQ SCH ×2 (10:00→21:39)
[2017-01-18] MEDS: LEVOFLOXACIN 250 MG IVPB 50 ML IVPB SCH (11:00)
--- NOTE | 2017-01-18 16:05 | EKG ---
Test Reason : Blood Pressure : / mmHG Vent. Rate : 077 BPM Atrial Rate : 077 BPM P-R Int : 122 ms QRS Dur : 074 ms QT Int : 370 ms P-R-T Axes : 072 -11 -03 degrees QTc Int : 418 ms SINUS RHYTHM WITH PREMATURE ATRIAL COMPLEXES OTHERWISE NORMAL ECG WHEN COMPARED WITH ECG OF 21-DEC-2016 10:16, PREMATURE ATRIAL COMPLEXES ARE NOW PRESENT Confirmed by HEDY COLLAZO, AISLINN ([id number]) on 01/18/2017 4:04:49 PM Referred By: Corey CHURCH Confirmed By:AISLINN KNOTT MD
--- NOTE | 2017-01-18 16:43 | PN ---
GI Progress Note Subjective: No diarrhea today 2 BM's yesterday per nurse Ms. Ho states feeling gassy - Objective Vital Signs: Vital Signs Temperature 97.7 F 01/18/17 14:03 Pulse Rate 75 01/18/17 14:03 Respiratory Rate 20 01/18/17 14:03 Blood Pressure 114/56 01/18/17 14:03 O2 Sat by Pulse Oximetry (%) 98 01/17/17 21:00 Constitutional: Calm Eyes: No: Sclera Icterus Cardiovascular: Yes: Regular Rate and Rhythm ...Palpate: Yes: Tenderness (Improved TTP left abdomen) ...Percussion: No: Tympanitic Neurological: Yes: Alert, Oriented Labs: CBC, BMP 01/17/17 06:00 01/18/17 06:00 INR, PTT INR 1.04 (0.82-1.09) 01/15/17 15:40 Hepatic Panel Total Bilirubin 0.4 mg/dL (0.2-1.0) 01/16/17 06:35 AST 23 U/L (15-37) 01/16/17 06:35 ALT 28 U/L (12-78) D 01/16/17 06:35 Alkaline Phosphatase 117 U/L (45-117) D 01/16/17 06:35 Albumin 2.5 g/dl (3.4-5.0) L D 01/16/17 06:35 01/16/17 01/18/17 06:35 06:00 C-Reactive Protein 0.8 H 0.8 H Problem List - Problems (1) Acute diverticulitis Assessment/Plan: Clinically improved and tolerating PO continue Abx. Platelets are declining. ? if abx need to be changed / heme eval Bacid Code(s): K57.92 - DVTRCLI OF INTEST, PART UNSP, W/O PERF OR ABSCESS W/O BLEED
[2017-01-18] MEDS: LIDOCAINE 5% TOPICAL PATCH TP SCH (17:56)
[2017-01-18] MEDS ORDERED: ALPRAZolam 0.25 MG TABLET PO STA ×2 (19:04→21:28)
[2017-01-18] MEDS: ATORVASTATIN CA 10 MG TABLET (FP) PO SCH (21:39)
[2017-01-18] MEDS: ASPIRIN 81 MG CHEWABLE TABLETS PO SCH (21:39)
[2017-01-18] MEDS: METOPROLOL SUCCINATE 25 MG TAB.SR.24H (FP) PO SCH (21:39)
[2017-01-19] MEDS: METRONIDAZOLE 500 MG PREMIXED 100 ML IVPB SCH (01:20)
[2017-01-19 07:39] LABS: BASOPHIL 1.5 % (0-2.0); EOSINOPHIL 5.8 % (0-4.5); MCH 31.5 pg (25.7-33.7); MCHC 33.9 g/dl (32.0-36.0); MEAN PLT VOLUME 8.6 fl (7.5-11.1); NEUTROPHILS 61.2 % (42.8-82.8); PLATELET COUNT 111 K/MM3 (134-434); WHITE BLOOD COUNT 4.3 K/mm3 (4.0-10.0)
[2017-01-19 07:46] LABS: CALCIUM 8.7 mg/dL (8.5-10.1); CREATININE 1.2 mg/dL (0.55-1.02)
--- NOTE | 2017-01-19 08:59 | PN ---
Progress Note (short form) - Note Progress Note: Patient on Rx for Acute Diverticulitis still has cramy abdominal pain and loose BM's even accidents in bed and some nausea and poor appetite. She feels ill especially after Flagyl Rx; will hold todays doses. Pain in back: On Xray: Acute small lumbar compression Fx.; lidoderm ordered. Still somewhat depressed; will Rx On Eam: Vital Signs Period Temp Pulse Resp BP Sys/[place]arro Pulse Ox Last 24 Hr 97.7 F-98.2 F 75-109 20-20 114-140/56-72 98 Alert Pain on transfer from sitting to laying Chest Clear Cor: reg Abd still quite distended with increased bowel sounds and some LLQ tenderness. Abnormal Lab Results 01/18/17 01/19/17 01/19/17 17:45 06:00 06:00 Plt Count 111 L Eosinophils % 5.8 H Sodium 147 H Chloride 114 H Creatinine 1.2 H C-Reactive Protein 0.8 H IMP: Acute Diverticulitis Acute compression fx lumbar spine Acute depression Plan: Lidoderm Hold flagyl today Bupropion Problem List - Problems (1) Diarrhea Code(s): R19.7 - DIARRHEA, UNSPECIFIED (2) Acute diverticulitis Code(s): K57.92 - DVTRCLI OF INTEST, PART UNSP, W/O PERF OR ABSCESS W/O BLEED (3) CKD (chronic kidney disease) Code(s): N18.9 - CHRONIC KIDNEY DISEASE, UNSPECIFIED (4) HTN (hypertension) Code(s): I10 - ESSENTIAL (PRIMARY) HYPERTENSION (5) Edema extremities Code(s): R60.0 - LOCALIZED EDEMA
[2017-01-19] MEDS: LACTOBACILLUS ACIDOPHILUS 1 EACH TAB (FP) PO SCH (09:02)
[2017-01-19] MEDS: HEPARIN NA (PORCINE) 5,000 UNITS/ML 1ML VIAL SQ SCH ×2 (09:02→21:53)
[2017-01-19] MEDS: ALLOPURINOL 100 MG TABLET (FP) PO SCH (09:02)
[2017-01-19] MEDS: LIDOCAINE 5% TOPICAL PATCH TP SCH (09:02)
[2017-01-19] MEDS: LEVOFLOXACIN 250 MG IVPB 50 ML IVPB SCH (09:02)
--- NOTE | 2017-01-19 18:07 | PN ---
GI Progress Note Subjective: No abdominal pain No diarrhea today - Objective Vital Signs: Vital Signs Temperature 98.5 F 01/19/17 14:45 Pulse Rate 107 H 01/19/17 14:45 Respiratory Rate 20 01/19/17 14:45 Blood Pressure 124/59 01/19/17 14:45 O2 Sat by Pulse Oximetry (%) 97 01/19/17 09:00 Constitutional: Calm Eyes: No: Sclera Icterus Cardiovascular: Yes: Regular Rate and Rhythm Respiratory: Yes: CTA Bilaterally Gastrointestinal Inspection: No: Distention ...Auscultate: Yes: Normoactive Bowel Sounds ...Palpate: No: Tenderness, Tenderness, Rebound Labs: CBC, BMP 01/19/17 06:00 01/19/17 06:00 INR, PTT INR 1.04 (0.82-1.09) 01/15/17 15:40 Problem List - Problems (1) Acute diverticulitis Assessment/Plan: Clinically much improved, no loose bowel movements Complete 10 day course of Abx Probiotic Low residue diet No objection to d/c home Follow-up in office in 2 weeks Code(s): K57.92 - DVTRCLI OF INTEST, PART UNSP, W/O PERF OR ABSCESS W/O BLEED
[2017-01-19] MEDS: ATORVASTATIN CA 10 MG TABLET (FP) PO SCH (21:53)
[2017-01-19] MEDS: ASPIRIN 81 MG CHEWABLE TABLETS PO SCH (21:53)
[2017-01-19] MEDS: oxyCODONE HCL 5 MG TABLET PO PRN (21:53)
[2017-01-19] MEDS: METOPROLOL SUCCINATE 25 MG TAB.SR.24H (FP) PO SCH (21:53)
[2017-01-20 08:02] LABS: CALCIUM 9.1 mg/dL (8.5-10.1); CREATININE 1.2 mg/dL (0.55-1.02)
[2017-01-20] MEDS: HEPARIN NA (PORCINE) 5,000 UNITS/ML 1ML VIAL SQ SCH ×2 (10:45→21:34)
[2017-01-20] MEDS: METRONIDAZOLE 500 MG PREMIXED 100 ML IVPB SCH ×2 (10:46→11:18)
[2017-01-20] MEDS: LIDOCAINE 5% TOPICAL PATCH TP SCH (10:46)
[2017-01-20] MEDS: LACTOBACILLUS ACIDOPHILUS 1 EACH TAB (FP) PO SCH (10:46)
[2017-01-20] MEDS: LEVOFLOXACIN 250 MG IVPB 50 ML IVPB SCH (10:46)
[2017-01-20] MEDS: ALLOPURINOL 100 MG TABLET (FP) PO SCH (10:47)
--- NOTE | 2017-01-20 11:27 | PN ---
Progress Note, Physician Chief Complaint: Patient was feeling better yesterday off the flagyl and nausea and queasy feeling better but had 2 loose BM's this AM. Still some back pain on transfer. History of Present Illness: Patient with Acute Diverticulits and multiple complaints of feeling ill with abdominal discomfort, gas, cramps, queasy feelings and loss of appetite. She feels a little better today because I did not give 2 doses of Flagyl yesterday. I spoke to ID Re; a substitute and unasym suggested. She had 2 loose BM's after dinner last nite. I told her that I wanted to see how she does on more solid food before discharge and she hesitantly agreed to try. She may also need some PT at home via [facility]. - Current Medication List Current Medications: Active Medications Acetaminophen (Tylenol -) 650 mg PO Q6H PRN PRN Reason: FEVER OR PAIN Last Admin: 01/18/17 00:44 Dose: 650 mg Allopurinol (Zyloprim -) 100 mg PO DAILY [facility] Last Admin: 01/20/17 10:47 Dose: 100 mg Ampicillin Sodium/Sulbactam Sodium (Unasyn 1.5 Gm (Pre-Docked)) 1.5 gm IVPB ONCE ONE Stop: 01/20/17 11:46 Aspirin (Asa -) 81 mg PO HS [facility] Last Admin: 01/19/17 21:53 Dose: 81 mg Atorvastatin Calcium (Lipitor -) 10 mg PO HS [facility] Last Admin: 01/19/17 21:53 Dose: 10 mg Bupropion HCl (Wellbutrin Xl -) 150 mg PO DAILY [facility] Last Admin: 01/20/17 10:47 Dose: 150 mg Heparin Sodium (Porcine) (Heparin -) 5,000 unit SQ BID [facility] Last Admin: 01/20/17 10:45 Dose: 5,000 unit Levofloxacin (Levaquin 250 Mg Premixed Ivpb -) 50 mls @ 50 mls/hr IVPB DAILY [facility] Last Admin: 01/20/17 10:46 Dose: 50 mls/hr Ampicillin Sodium/Sulbactam Sodium (Unasyn 1.5 Gm (Pre-Docked)) 100 mls @ 200 mls/hr IVPB BID [facility] Lactobacillus Acidophilus (Bacid -) 1 tab PO DAILY [facility] Last Admin: 01/20/17 10:46 Dose: 1 tab Lidocaine (Lidoderm Patch -) 1 patch TP DAILY [facility] Last Admin: 01/20/17 10:46 Dose: 1 patch Metoprolol Succinate (Toprol Xl -) 25 mg PO HS [facility] Last Admin: 01/19/17 21:53 Dose: 25 mg Morphine Sulfate (Morphine Injection -) 2 mg IVPUSH Q4H PRN PRN Reason: PAIN LEVEL 6-10 Ondansetron HCl (Zofran Injection) 4 mg IVPB Q6H PRN PRN Reason: NAUSEA Oxycodone HCl (Roxicodone -) 5 mg PO Q6H PRN PRN Reason: PAIN Last Admin: 01/19/17 21:53 Dose: 5 mg - Objective Vital Signs: Vital Signs Temperature 98.3 F 01/20/17 05:47 Pulse Rate 82 01/20/17 05:47 Respiratory Rate 20 01/20/17 05:47 Blood Pressure 114/66 01/20/17 05:47 O2 Sat by Pulse Oximetry (%) 97 01/19/17 09:00 Constitutional: Yes: Calm, Pallor Cardiovascular: Yes: Regular Rate and Rhythm Respiratory: Yes: Diminished. No: Rales Gastrointestinal: Yes: Distention, Hyperactive Bowel Sounds, Tenderness (mild LLQ) Genitourinary: No: Bhat Present Edema: No Neurological: Yes: Alert, Oriented, Other (Hard of hearing.) Psychiatric: Yes: Other (Less depressed in appearance today; now on Rx) Labs: CBC, BMP 01/19/17 06:00 01/20/17 06:50 INR, PTT INR 1.04 (0.82-1.09) 01/15/17 15:40 Problem List - Problems (1) Diarrhea Assessment/Plan: Still 2 loose BM's Code(s): R19.7 - DIARRHEA, UNSPECIFIED (2) Acute diverticulitis Assessment/Plan: GI rec: 10 days antibiotics; she has been on 5 days so far. Code(s): K57.92 - DVTRCLI OF INTEST, PART UNSP, W/O PERF OR ABSCESS W/O BLEED (3) CKD (chronic kidney disease) Assessment/Plan: Stable lab Code(s): N18.9 - CHRONIC KIDNEY DISEASE, UNSPECIFIED (4) HTN (hypertension) Assessment/Plan: BP 114/66 Code(s): I10 - ESSENTIAL (PRIMARY) HYPERTENSION (5) Edema extremities Assessment/Plan: Improved. Code(s): R60.0 - LOCALIZED EDEMA
[2017-01-20] MEDS ORDERED: AMPICILLIN NA/SULBACTAM NA 1.5 GM/100 ML PRE-DOCKED IVPB ONE (11:45)
--- NOTE | 2017-01-20 19:28 | PN ---
GI Progress Note Subjective: GI NOte: tolerated solids for dinner. Passing smal amounts of loose stool and still feeling bloated Abd: distended, tympanitic, nontender, BS normoactive Impression: Resolving diverticulitis Plan: Continue solid diet. If tolerated may consider discharge on antibiotics - Objective Vital Signs: Vital Signs Temperature 98.4 F 01/20/17 18:39 Pulse Rate 70 01/20/17 18:39 Respiratory Rate 18 01/20/17 18:39 Blood Pressure 132/60 01/20/17 18:39 O2 Sat by Pulse Oximetry (%) 97 01/20/17 09:00 Labs: CBC, BMP 01/19/17 06:00 01/20/17 06:50 INR, PTT INR 1.04 (0.82-1.09) 01/15/17 15:40
[2017-01-20] MEDS: ASPIRIN 81 MG CHEWABLE TABLETS PO SCH (21:34)
[2017-01-20] MEDS: ATORVASTATIN CA 10 MG TABLET (FP) PO SCH (21:34)
[2017-01-20] MEDS: METOPROLOL SUCCINATE 25 MG TAB.SR.24H (FP) PO SCH (21:34)
[2017-01-20] MEDS: AMPICILLIN NA/SULBACTAM NA 100 ML IVPB SCH (21:34)
[2017-01-21 07:46] LABS: CALCIUM 9.1 mg/dL (8.5-10.1); CREATININE 1.3 mg/dL (0.55-1.02)
--- NOTE | 2017-01-21 09:34 | DS ---
Physical Examination Vital Signs: Vital Signs Temperature 98.2 F 01/21/17 06:00 Pulse Rate 85 01/21/17 06:00 Respiratory Rate 20 01/21/17 06:00 Blood Pressure 119/60 01/21/17 06:00 O2 Sat by Pulse Oximetry (%) 97 01/20/17 09:00 Constitutional: Yes: No Distress, Calm Cardiovascular: Yes: Regular Rate and Rhythm Respiratory: Yes: CTA Bilaterally Gastrointestinal: Yes: Normal Bowel Sounds, Soft. No: Tenderness, Rebound Labs: CBC, BMP 01/19/17 06:00 01/21/17 06:00 Discharge Summary Reason For Visit: DIVERTICULITIS OF INTESTINE Hospital Course: Please refer to daily notes and problem list Currently doing well on antibiotic regimen To go home on medications as outlined Will review dosing schedule with Dr Nogueira Condition: Good - Instructions Diet, Activity, Other Instructions: Soft diet until you see you GI MD. Antibiotics at home: 5 days of Augmentin 500 mg twice a day for 5 days You should still have 5 more days of levofloxin at home from the previous admission. See Dr. Nogueira within 2weeks and see Dr. Randal Guadalupe or Dr. Stern within 2-3 weeks Buy Align (Probiotic) over the counter and take as directed on the package. Referrals: Doug Nogueira MD [Primary Care Provider] - Cb Stern MD [Staff Physician] - Disposition: HOME - Home Medications Comprehensive Discharge Medication List: Ambulatory Orders Aspirin 81 mg PO HS 02/27/14 Atorvastatin Ca [Lipitor] 10 mg PO HS 02/27/14 Metoprolol Succinate [Toprol XL -] 25 mg PO HS 02/27/14 Allopurinol [Zyloprim -] 100 mg PO DAILY 12/21/16 Acetaminophen [Tylenol .Regular Strength -] 650 mg PO Q6H PRN #0 tablet Amoxicillin/Potassium Clav [Augmentin 875-125 Tablet] 1 each PO BID #14 tablet 01/21/17 Bupropion HCl [Wellbutrin Xl -] 150 mg PO DAILY #30 tab.sr.24h 01/21/17 Lactobacillus Acidophilus [Bacid -] 1 tab PO DAILY tab 01/21/17
[2017-01-21] MEDS: AMPICILLIN NA/SULBACTAM NA 100 ML IVPB SCH (09:40)
[2017-01-21] MEDS: HEPARIN NA (PORCINE) 5,000 UNITS/ML 1ML VIAL SQ SCH (09:42)
[2017-01-21] MEDS: LACTOBACILLUS ACIDOPHILUS 1 EACH TAB (FP) PO SCH (09:42)
[2017-01-21] MEDS: LIDOCAINE 5% TOPICAL PATCH TP SCH (09:42)
[2017-01-21] MEDS: LEVOFLOXACIN 250 MG IVPB 50 ML IVPB SCH (09:42)
[2017-01-21] MEDS: ALLOPURINOL 100 MG TABLET (FP) PO SCH (09:43)
[2017-01-21 13:51] VITALS: BP 132/71; PULSE 90; TEMP 98.1
== END 2017-01-21 15:33 | disposition home or self-care (01) | DRG 392 ==
LOC: JER 15:02 → JERBED 18:19 → UNDOADMIN 19:53 → J7W 21:35
PROVIDERS: ADMIT Specialist; ATTEND Specialist
DX: K57.92 Diverticulitis of intestine, part unspecified, without perforation or abscess without bleeding (principal); E78.5 Hyperlipidemia, unspecified; M10.9 Gout, unspecified; I12.9 Hypertensive chronic kidney disease with stage 1 through stage 4 chronic kidney disease, or unspecified chronic kidney disease; N18.9 Chronic kidney disease, unspecified
CPT/HCPCS: 36415; 71020-TC; 72100-TC; 72202-TC; 74176-TC; 80048; 80053; 81003; 81015; 83735; 85025; 85610; 85651; 86140; 86301; 87040; 87086; 87324; 87449; 93005; 93010; 97116-GP; 97161-GP; 99283-25; J1644